=== PATIENT | female | born 1960 | race Caucasian/White ===

== ENCOUNTER 2017-09-13 16:50 | Inpatient (IN) | payer MEDICARE, MEDICAID, SELFPAY ==
[2017-09-13] VITALS (10 sets, daily range): BP systolic 102–122; BP diastolic 51–67; PULSE 81–110; RESP 18–24; TEMP 36.9–37.4; O2SAT 94–99; BMI 36.8; BMI 37.9
--- NOTE | 2017-09-13 18:23 | RAD_ITS ---
STUDY: X-RAY CHEST REASON FOR EXAM: Female, 57 years old. Shortness of breath cough and nausea TECHNIQUE: PA and lateral views of the chest. COMPARISON: Previous study of 06/22/2017 FINDINGS: There is a right middle lobe infiltrate. There is no demonstrated pleural abnormality. Normal size heart. Normal mediastinum and elidia. Normal visualized pulmonary arteries. There are calcified plaques of the aortic arch. Normal visualized thoracic spine. Normal visualized ribs, clavicles, and shoulders. There is no demonstrated abnormality of the visualized soft tissue structures of the upper abdomen. RAD/Chest PA and Lateral IMPRESSION: Right middle lobe infiltrate, representing a new interval finding. Calcified plaques of the aortic arch. Electronically Signed: Miguel Mays MD at 19:57 EST , Service support ,
--- NOTE | 2017-09-13 18:24 | ED.VISSUMM ---
- ER Visit Summary Date of Service: 09/13/17 Chief Complaint: Several day history of cough and mild shortness of breath. Only chest pain is with coughing. Also had nausea vomiting today and greenish productive phlegm. Subjective fever and chills. No abdominal pain. She did get a flu shot this year. No history of DVT or PE. No recent immobilization, calf pain or any hemoptysis. History of Present Illness: States she was feeling ill for several days and saw she was starting to feel better and then again worsened. Physical exam: The patient is a 57 F no acute distress. Vital signs are stable afebrile. Pulse ox 95% on room air no hypoxia. HEENT exam dry mucous membranes otherwise unremarkable. Neck nontender no JVD no lymphadenopathy. Lungs dry cough but no rales, rhonchi or wheezing. Equal symmetrical. Heart regular rhythm no murmur. Abdomen is soft and nontender. Normal bowel sounds without peritoneal signs. No localizing tenderness. She is moving all 4 extremities. Neurovascular intact. Calves are nontender without edema or cords. Neurologically patient is awake and alert without any focal motor deficits. Skin exam is unremarkable. Test Results: Chest x-ray two-view shows a right lower lobe pneumonia. White count elevated 12.6 with a normal H&H. BMP is normal with a anion gap of 9. Emergency Department Course and Treatment: Clinically looks dehydrated and will see the liter of fluid IV. Also IV Zofran for you. Treatment Plan: Repeat exam patient states she does not feel well at all. We get up and walk during she is extremely weak tried to ambulate. But she was able to ambulate. Due to her right lower lobe pneumonia and multiple comorbidities I will speak to the hospitalist about admission. I have already discussed this with the patient and family who preferred admission. Disposition: Admission Impression: Acute right lower lobe community-acquired pneumonia COPD exacerbation History of CAD, [place], COPD This note was generated with Agency Spot[employer] dictation software. It may contain incorrect words, spelling, and punctuation that were not noted in review of the chart prior to signing ED Disposition - Plan for ED Patient: Chief Complaint: Shortness of Breath Referrals: Edvin West MD [Primary Care Provider] -
[2017-09-13 18:54] LABS: Absolute Lymphocyte Count 1.18 X10^3/ul (0.83-4.51); Absolute Neutrophil Count 10.3 X10^3/uL (2.0-7.7); Basophil# 0.02 X10^3/uL; Basophil% 0.2 % (0-1); Eosinophil# 0.09 X10^3/uL; Eosinophils% 0.7 % (0-5); Hematocrit 37.5 % (37-47); Hemoglobin 12.4 g/dl (12.0-15.0); Lymphocyte # 1.18 X10^3/ul (4.0); Lymphocyte % 9.4 % (19-41); Mean Corp Hgb Conc 33.1 g/gl (32-36); Mean Corpuscular Hgb 30.4 pg (27.0-32.0); Mean Corpuscular Volume 91.9 fL (81-99); Mean Platelet Vol. 8.6 fl (6.2-12.0); Monocyte# 0.97 X10^3/uL; Monocyte% 7.7 % (0-10); Neutrophil % 81.9 % (47-70); Platelet Count 210 K/mm3 (150-450); RBC Distribution Width CV 13.7 % (11.6-14.6); Red Blood Count 4.08 M/mm3 (4.2-5.4); White Blood Count 12.6 K/mm3 (4.4-11.0)
[2017-09-13 18:55] LABS: POSITIVE COUNT NO; POSITIVE DIFFERENTIAL NO; POSITIVE MORPHOLOGY NO
[2017-09-13 19:07] LABS: Anion Gap 9 (5-15); BUN 12 mg/dL (7-18); BUN/Creat Ratio 12.9 RATIO (10-20); Calcium,Total 8.8 mg/dL (8.5-10.1); Chloride 104 mmol/L (98-107); Creatinine, Serum 0.93 mg/dL (0.55-1.02); EST Glomerular Filtration Rate 66 mL/min (>60); Est Glom Filt Rate - Afr Amer 80 mL/min (>60); Estimated Creatinine Clearance 60.06 ml/min; Glucose 117 mg/dL (70-110); Potassium 3.7 mmol/L (3.5-5.1); Sodium Level 138 mmol/L (136-145)
[2017-09-13] MEDS: Ondansetron 4 MG/2 ML Vial IV (19:17)
[2017-09-13] MEDS: 0.9% Normal Saline 1,000 ML 1000 ML IV (19:17)
--- NOTE | 2017-09-13 20:30 | PCM.HP.STD ---
Problem List (1) Chills with fever Status: Acute (2) Productive cough Status: Acute History of Present Illness Date of Admission: 09/13/17 Chief Complaint: productive cough, chill, fever The patient is a 57 year old F was seen in the emergency room at [facility] with a chief complaint of cough productive of green sputum, fever, and chills ?2 days. Patient also complained of some shortness of breath today. Patient denied any hemoptysis. Patient stated that she felt she was running a temperature at home but did not take her temperature. Patient also complained of generalized fatigue and weakness. Patient was afebrile, pulse ox on room air was 98%. Workup in the emergency room included labs which showed an elevated white blood cell count 12.6, chemistry profile was unremarkable, chest x-ray showed a right middle lobe infiltrate indicating probable community-acquired pneumonia. Emergency room physician was considering discharge to home on oral antibiotics but upon ambulation in the emergency room, patient became weak and did not feel that she could go home. Patient's medical history includes chronic obstructive pulmonary disease and atherosclerotic heart disease. At the time of this dictation, patient's lactic acid was pending, patient received IV Levaquin in the emergency room. Patient will be admitted to [facility] for right middle lobe community-acquired pneumonia. Past Medical History Past Medical History (Chronic Problems): Chronic Problems Diabetes mellitus (Chronic) Coronary artery disease (Chronic) Hyperlipidemia (Chronic) Anxiety disorder (Chronic) Depression (Chronic) Asthma/COPD (Chronic) Allergies No Known Allergies Allergy (Verified 09/13/17 16:56) Home Medications: Ambulatory Orders Medication Instructions Recorded ALPRAZolam [Xanax] 1 mg PO QHS 06/22/17 Albuterol Aerosols [Ventolin 2.5 mg INHALATION Q4H PRN PRN 06/22/17 Aerosols] Albuterol IH (ProAir) [Proair Hfa 1 puff INHALATION Q4H PRN PRN 06/22/17 (SP)Vent Pts] Amitriptyline HCl [Elavil] 25 mg PO QHS 06/22/17 Bupropion HCl [Wellbutrin Xl] 300 mg PO DAILY 06/22/17 Clopidogrel Bisulfate [Plavix] 75 mg PO DAILY 06/22/17 Docusate Sodium [Colace] 100 mg PO DAILY PRN PRN 06/22/17 Duloxetine Hcl [Cymbalta] 30 mg PO TID 06/22/17 Fluticasone 0.05% [Flonase Nasal 2 spray NASAL DAILY 06/22/17 Ducor] Gabapentin [Neurontin] 300 mg PO BIDCM 06/22/17 Montelukast Sodium [Singulair] 10 mg PO QHS 06/22/17 Mupirocin [Bactroban] 1 applic TOPICAL TID 06/22/17 Nitroglycerin 1 tab PO Q5M 06/22/17 Nystatin Powder [Mycostatin Powder] 1 applic TOPICAL BID 06/22/17 Omeprazole [Prilosec] 20 mg PO DAILY 06/22/17 Ondansetron [Zofran Odt] 4 mg PO PRN PRN 06/22/17 Chlorhexidine Gluconate [Peridex] 15 ml MM BID 09/13/17 Melatonin 10 mg PO QHS 09/13/17 Montelukast [Singulair] 10 mg PO DAILY 09/13/17 Surgical History: dilatation and curettage, - - Coronary artery stents, gastric bypass Psychiatric History: Anxiety, Depression 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 Denies: Anorexia, Night Sweats Eyes: Denies: Blurred vision, Cataracts, Conjunctivae Inflammation, Double vision, Drainage HEENT: Denies: Difficulty Swallowing, Dysphasia, Ear Pain, Eye Pain, Head Aches, Hearing Changes, Nasal bleeding, Nasal Congestion, Post Nasal Drip Cardiovascular: Denies: Chest Pain, Claudication, Chest Pressure, Chest Tightness, Edema, Orthopnea, Palpitations, Paroxysmal Noc. Dyspnea, Syncope Respiratory: Reports: Cough, Shortness of Breath, Shortness of breath upon exertion, Sputum production. Denies: Hemoptysis, Pleuritic Pain, Shortness of breath at rest, Wheezing Gastrointestinal: Denies: Abdominal Pain, Constipation, Diarrhea, Dyspepsia, Hematemesis, Hematochezia, Nausea, Melena Genitourinary: Denies: Dysuria, Frequency, Hematuria, Incontinence, Nocturia, Retention Gynecological: Denies: Breast symptoms Musculoskeletal: Denies: Arm Pain, Back Pain, Foot Pain, Hand Pain, Joint stiffness, Joint swelling, Joint Tenderness, Leg Pain Skin: Denies: Dryness, Jaundice, Pruritis, Rash Neurological: Denies: Balance problems, Blurred vision, Double vision, Change in Speech, Difficulty swallowing, Focal weakness, Headaches, Incoordination Psychiatric: Reports: Depression. Denies: Anxiety, Homicidal Ideations, Suicidal Ideations Endocrine: Denies: Change in Body Habitus, Heat/ Cold Intolerance, Polyuria, Hx of Irradiation Hematologic/ Lymphatic: Denies: Adenopathy, Anemia, Easy Bruising, Petechiae, Purpura, Hx of blood clot VTE Information - Inpt Only VTE Present on Admission: No VTE Mechan Device Prophylaxis: None VTE Pharm Prophylaxis ordered?: Yes Patient Problems: Active and Suspected Problems Chills with fever (Acute) Productive cough (Acute) - Physical Exam General: Alert, Oriented x3, Cooperative, No apparent distress, Well developed, Well nourished HEENT: Atraumatic, PERRLA, EOMI, Normocephalic Oral: Moist Mucosa Neck: Supple, No JVD, Negative Carotid Bruits, No Nuchal Rigidity, Trachea Midline, Thyroid Normal Size and Texture Lungs: No rhonchi, No wheeze, Diminished, Rales - Fine inspiratory rales are noted over the patient's right posterior midlung field Cardiovascular: Regular rate, Regular Rhythm, Normal S1, Normal S2, No murmurs, No Ectopic Activity, PMI Normal, No rub noted, No Gallop Abdomen: Bowel Sounds Present, Soft, Non Tender, Non-Distended, No hernias noted Extremities: No clubbing, No cyanosis, No edema, Capillary Refill Less than 3 Seconds Skin: No rashes, No breakdown Musculoskeletal: No Tenderness to Palpation of Joints or Extremities, No Muscle Wasting Neurological: Cranial nerves II-XII grossly intact, Neuro grossly intact, Muscle tone normal, Sensory exam intact to light touch and pain, Coordination normal, Gait narrow based and stable Psych/Mental Status: Normal Affect, Appropriate, Alert and oriented to time, place, person, mood and affect Vital Signs Temp Pulse Resp BP Pulse Ox 99.3 F H 99 24 H 102/67 98 09/13/17 16:53 01/03/18 20:06 09/13/17 20:06 09/13/17 20:06 09/13/17 20:06 Oxygen Delivery Method Nasal Cannula Weight: 100.244 kg Body Mass Index (BMI) 36.8 Laboratory Tests Past 24 Hrs 09/13/17 09/13/17 18:35 18:35 WBC 12.6 H RBC 4.08 L Hgb 12.4 Hct 37.5 MCV 91.9 MCH 30.4 MCHC 33.1 RDW 13.7 RDW Differential 45.0 H Plt Count 210 MPV 8.6 Immature Gran % (Auto) 0.100 Neut % (Auto) 81.9 H Lymph % (Auto) 9.4 L [place] % (Auto) 7.7 Eos % (Auto) 0.7 Baso % (Auto) 0.2 Absolute Neuts (auto) 10.3 H Absolute Lymphs (auto) 1.18 Total Counted Not Reportable Sodium 138 Potassium 3.7 Chloride 104 Carbon Dioxide 25.0 Anion Gap 9 BUN 12 Creatinine 0.93 Estim Creat Clear Calc 60.06 Est GFR (MDRD) Af Amer 80 Est GFR (MDRD) Non-Af 66 BUN/Creatinine Ratio 12.9 Glucose 117 H Calcium 8.8 Assessment/Plan Active and Suspected Problems Chills with fever (Acute) Productive cough (Acute) #1 right middle lobe community-acquired pneumonia-patient will be admitted to [facility], she will be maintained on IV Levaquin, sputum culture will be obtained, patient will be given DuoNeb aerosol treatments, labs will be repeated, patient will have a follow-up chest x-ray tomorrow. Lactic acid will be obtained tonight, urine will be obtained for Legionella and strep pneumo antigen. #2 chronic obstructive pulmonary disease #3 atherosclerotic heart disease #4 depression Code Visit Inpatient E&M: 70770 Init Hosp L3
--- NOTE | 2017-09-13 20:32 | ED.RN ---
MED SURG RIGHT LOWER LOBE COMMUNITY AQUIRED PNEUMONIA GUILLAUME
[2017-09-13 22:20] LABS: Lactic Acid 1.2 mmol/L (0.4-2.0)
[2017-09-13] MEDS: Amitriptyline 25 MG Tablet PO (22:26)
[2017-09-13] MEDS: Montelukast 10 MG Tablet PO (22:26)
[2017-09-13] MEDS: MELATONIN 10 MG TABLET PO (22:26)
[2017-09-13] MEDS: DULoxetine Hcl 30 MG Capsule PO (22:26)
[2017-09-13] MEDS: Heparin Injection 5,000 UNITS/ML Syringe 5000 UNITS SC (22:26)
[2017-09-13] MEDS: Acetaminophen 325 MG Tablet 650 MG PO (22:40)
[2017-09-13] MEDS: Ipratropium/Albuterol Sulfate 3 ML AMPUL.NEB INHALATION (23:07)
[2017-09-14] VITALS (8 sets, daily range): BP systolic 94–116; BP diastolic 53–67; PULSE 72–91; RESP 16–20; TEMP 36.5–36.9; O2SAT 94–98
[2017-09-14] MEDS: ALPRAZolam 0.5 MG Tablet 1 MG PO ×2 (00:08→21:51)
[2017-09-14] MEDS: DULoxetine Hcl 30 MG Capsule PO ×3 (05:21→21:51)
--- NOTE | 2017-09-14 05:55 | RAD_ITS ---
STUDY: X-RAY CHEST REASON FOR EXAM: Female, 57 years old. Shortness of breath. Cough and pneumonia. TECHNIQUE: PA and lateral views of the chest. COMPARISON: Comparison is made with prior examination dated 2017. FINDINGS: Minimal elevation of the right hemidiaphragm. Stable infiltrate in the right lower lobe with blunting of the right costophrenic angle. Increased markings are also seen in the right middle lobe. Increasing markings at the left lung base suggestive of left basilar atelectasis. Normal size heart. Normal mediastinum and elidia. Normal visualized pulmonary arteries. Normal visualized aortic arch and descending thoracic aorta. Normal visualized thoracic spine. Normal visualized ribs, clavicles, and shoulders. There is no demonstrated abnormality of the visualized soft tissue structures of the upper abdomen. RAD/Chest PA and Lateral IMPRESSION: Stable right lower lobe and right middle lobe infiltrates. Blunting of the right costophrenic angle. Findings suggestive of atelectasis at the left lung base. Electronically Signed: Marcial Arceo MD at 10:58 EST Tel [phone], Service support ,
[2017-09-14 07:04] LABS: Absolute Lymphocyte Count 2.01 X10^3/ul (0.83-4.51); Absolute Neutrophil Count 6.4 X10^3/uL (2.0-7.7); Basophil# 0.02 X10^3/uL; Basophil% 0.2 % (0-1); Eosinophils% 4.2 % (0-5); Hematocrit 34.5 % (37-47); Hemoglobin 11.1 g/dl (12.0-15.0); Lymphocyte # 2.01 X10^3/ul (4.0); Mean Corp Hgb Conc 32.2 g/gl (32-36); Mean Corpuscular Hgb 30.3 pg (27.0-32.0); Mean Corpuscular Volume 94.3 fL (81-99); Mean Platelet Vol. 8.7 fl (6.2-12.0); Monocyte# 0.75 X10^3/uL; Monocyte% 7.8 % (0-10); Neutrophil # 6.39 X10^3/uL (2.7-7.7); Neutrophil % 66.7 % (47-70); Platelet Count 189 K/mm3 (150-450); RBC Distribution Width CV 14.1 % (11.6-14.6); Red Blood Count 3.66 M/mm3 (4.2-5.4); White Blood Count 9.6 K/mm3 (4.4-11.0)
[2017-09-14 07:07] LABS: POSITIVE COUNT NO; POSITIVE DIFFERENTIAL NO; POSITIVE MORPHOLOGY NO
[2017-09-14] MEDS: Ipratropium/Albuterol Sulfate 3 ML AMPUL.NEB INHALATION ×3 (07:49→22:57)
[2017-09-14] MEDS: Gabapentin 300 MG Capsule PO ×2 (09:12→17:10)
[2017-09-14] MEDS: Clopidogrel Bisulfate 75 MG Tablet PO (09:12)
[2017-09-14] MEDS: Pantoprazole Sodium 20 MG Tablet PO (09:13)
[2017-09-14] MEDS: Heparin Injection 5,000 UNITS/ML Syringe 5000 UNITS SC ×2 (09:13→21:50)
--- NOTE | 2017-09-14 10:19 | PCM.PN.HOSP ---
Patient Problems: Active and Suspected Problems Chills with fever (Acute) Productive cough (Acute) Subjective: Patient is a 57-year-old lady who presented with progressive shortness of breath associated with fever chills as well as productive cough and assessment of pneumonia made admitted to regular nursing floor for further management Objective: GENERAL: Appears ill looking HEENT: Clear conjunctiva, NECK; supple, normal thyroid, CHEST: Diminished to auscultation bilaterally, HEART: Regular S1 S2, no audible murmurs ABDOMEN: soft, non-tender, normoactive bowel sounds, RECTAL: deferred EXTREMITIES: No edema, no clubbing, no cyanosis. CONTACT CENTER REPRESENTATIVE: Awake, no lateralizing signs. SKIN: No lesions no erythema, Vitals/I&O's: Vital Signs Temp Pulse Resp BP Pulse Ox 97.7 F L 91 18 116/57 L 96 09/14/17 09:10 09/14/17 09:10 09/14/17 09:10 09/14/17 09:10 09/14/17 09:10 Oxygen Delivery Method Room Air Weight: 103.3 kg Body Mass Index (BMI) 37.9 Intake and Output for Last 24 Hours 09/12/17 09/13/17 09/14/17 23:59 23:59 23:59 Intake Total 710 / 710 Output Total 300 / 300 950 / 950 Balance -300 / -300 -240 / -240 Microbiology Past 72 Hours 09/13/17 23:20 Sputum, Expectorated/Coughed Gram Stain - Preliminary 09/13/17 22:30 Urine, Clean Catch Streptococcus pneumoniae Antigen (M - Final 09/13/17 22:30 Urine, Clean Catch Legionella Antigen - Final Laboratory Results 09/13/17 21:31: Lactic Acid 1.2 09/14/17 06:14: WBC 9.6, RBC 3.66 L, Hgb 11.1 L, Hct 34.5 L, MCV 94.3, MCH 30.3, MCHC 32.2, RDW 14.1, RDW Differential 48.0 H, Plt Count 189, MPV 8.7, Immature Gran % (Auto) 0.100, Neut % (Auto) 66.7, Lymph % (Auto) 21.0, [place] % (Auto) 7.8, Eos % (Auto) 4.2, Baso % (Auto) 0.2, Absolute Neuts (auto) 6.4, Absolute Lymphs (auto) 2.01, Total Counted Not Reportable Current Medications Acetaminophen (Tylenol) 650 mg PO Q6H PRN PRN PRN Reason: Mild Pain (1-3)/Temp > 100.7 F Last Admin: 09/13/17 22:40 Dose: 650 mg Albuterol/Ipratropium (Duoneb) 3 ml INHALATION Q6H.RT [facility] Last Admin: 09/14/17 07:49 Dose: 3 ml Alprazolam (Xanax) 1 mg PO QHS PRN Last Admin: 09/14/17 00:08 Dose: 1 mg Amitriptyline HCl (Elavil) 25 mg PO QHS [facility] Last Admin: 09/13/17 22:26 Dose: 25 mg Bupropion HCl (Wellbutrin Xl) 300 mg PO DAILY [facility] Last Admin: 09/14/17 09:13 Dose: 300 mg Clopidogrel Bisulfate (Plavix) 75 mg PO DAILY [facility] Last Admin: 09/14/17 09:12 Dose: 75 mg Duloxetine HCl (Cymbalta) 30 mg PO TID [facility] Last Admin: 09/14/17 05:21 Dose: 30 mg Gabapentin (Neurontin) 300 mg PO BIDCM [facility] Last Admin: 09/14/17 09:12 Dose: 300 mg Heparin Sodium (Porcine) () 5,000 units SC BID [facility] Last Admin: 09/14/17 09:13 Dose: 5,000 units Levofloxacin (Levaquin) 750 mg in 150 mls @ 100 mls/hr IV Q24 [facility] Last Admin: 09/14/17 09:13 Dose: 100 mls/hr Sodium Chloride () 1,000 mls @ 15 mls/hr IV .Q48H PRN PRN Reason: SALINE FLUSH Melatonin (Melatonin) 10 mg PO QHS [facility] Last Admin: 09/13/17 22:26 Dose: 10 mg Montelukast Sodium (Singulair) 10 mg PO QHS [facility] Last Admin: 09/13/17 22:26 Dose: 10 mg Ondansetron HCl (Zofran) 4 mg IV Q8H PRN PRN PRN Reason: NAUSEA Pantoprazole Sodium (Protonix) 20 mg PO DAILY [facility] Last Admin: 09/14/17 09:13 Dose: 20 mg Sodium Chloride () 5 - 30 ml IV UD PRN PRN Reason: SALINE FLUSH Assessment/Plan Active and Suspected Problems Chills with fever (Acute) Productive cough (Acute) Patient is a 57-year-old lady who presented with progressive shortness of breath associated with fever chills as well as productive cough and assessment of pneumonia made admitted to regular nursing floor for further management 1. Community-acquired pneumonia. Imaging studies obtained on admission demonstrated a right middle lobe infiltrate. Patient admitted to regular nursing floor managed with Levaquin after cultures have been obtained. Patient was also placed on as needed aerosol treatment as well as supplemental oxygen. Also requested for rapid respiratory screen to rule out influenza 2. COPD stable 3. Atherosclerotic heart disease and is on both Plavix as well as atorvastatin 4. Dyslipidemia-patient is on statin therapy, continued at home dose 5. Depression: Patient is on Wellbutrin 6. GERD on PPI 7. DVT prophylaxis SC heparin Clinical Impression(s) from Imaging Studies Chest X-Ray 09/13/17 18:23 IMPRESSION: Right middle lobe infiltrate, representing a new interval finding. Calcified plaques of the aortic arch. Electronically Signed: Miguel Mays MD at 19:57 EST , Service support , Code Visit Inpatient E&M: [id number] [facility] Hosp L3
--- NOTE | 2017-09-14 10:28 | PN_ITS ---
Patient Problems: Active and Suspected Problems Chills with fever (Acute) Productive cough (Acute) Subjective: Patient is a 57-year-old lady who presented with progressive shortness of breath associated with fever chills as well as productive cough and assessment of pneumonia made admitted to regular nursing floor for further management Objective: GENERAL: Appears ill looking HEENT: Clear conjunctiva, NECK; supple, normal thyroid, CHEST: Diminished to auscultation bilaterally, HEART: Regular S1 S2, no audible murmurs ABDOMEN: soft, non-tender, normoactive bowel sounds, RECTAL: deferred EXTREMITIES: No edema, no clubbing, no cyanosis. 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 SKIN: No lesions no erythema, Vitals/I&O's: Vital Signs Temp Pulse Resp BP Pulse Ox 97.7 F L 91 18 116/57 L 96 09/14/17 09:10 09/14/17 09:10 09/14/17 09:10 09/14/17 09:10 09/14/17 09:10 Oxygen Delivery Method Room Air Weight: 103.3 kg Body Mass Index (BMI) 37.9 Intake and Output for Last 24 Hours 09/12/17 09/13/17 09/14/17 23:59 23:59 23:59 Intake Total 710 / 710 Output Total 300 / 300 950 / 950 Balance -300 / -300 -240 / -240 Microbiology Past 72 Hours 09/13/17 23:20 Sputum, Expectorated/Coughed Gram Stain - Preliminary 09/13/17 22:30 Urine, Clean Catch Streptococcus pneumoniae Antigen (M - Final 09/13/17 22:30 Urine, Clean Catch Legionella Antigen - Final Laboratory Results 09/13/17 21:31: Lactic Acid 1.2 09/14/17 06:14: WBC 9.6, RBC 3.66 L, Hgb 11.1 L, Hct 34.5 L, MCV 94.3, MCH 30.3 , MCHC 32.2, RDW 14.1, RDW Differential 48.0 H, Plt Count 189, MPV 8.7, Immature Gran % (Auto) 0.100, Neut % (Auto) 66.7, Lymph % (Auto) 21.0, [place] % ( Auto) 7.8, Eos % (Auto) 4.2, Baso % (Auto) 0.2, Absolute Neuts (auto) 6.4, Absolute Lymphs (auto) 2.01, Total Counted Not Reportable Current Medications Acetaminophen (Tylenol) 650 mg PO Q6H PRN PRN PRN Reason: Mild Pain (1-3)/Temp > 100.7 F Last Admin: 09/13/17 22:40 Dose: 650 mg Albuterol/Ipratropium (Duoneb) 3 ml INHALATION Q6H.RT [facility] Last Admin: 09/14/17 07:49 Dose: 3 ml Alprazolam (Xanax) 1 mg PO QHS PRN Last Admin: 09/14/17 00:08 Dose: 1 mg Amitriptyline HCl (Elavil) 25 mg PO QHS [facility] Last Admin: 09/13/17 22:26 Dose: 25 mg Bupropion HCl (Wellbutrin Xl) 300 mg PO DAILY [facility] Last Admin: 09/14/17 09:13 Dose: 300 mg Clopidogrel Bisulfate (Plavix) 75 mg PO DAILY [facility] Last Admin: 09/14/17 09:12 Dose: 75 mg Duloxetine HCl (Cymbalta) 30 mg PO TID [facility] Last Admin: 09/14/17 05:21 Dose: 30 mg Gabapentin (Neurontin) 300 mg PO BIDCM [facility] Last Admin: 09/14/17 09:12 Dose: 300 mg Heparin Sodium (Porcine) () 5,000 units SC BID [facility] Last Admin: 09/14/17 09:13 Dose: 5,000 units Levofloxacin (Levaquin) 750 mg in 150 mls @ 100 mls/hr IV Q24 [facility] Last Admin: 09/14/17 09:13 Dose: 100 mls/hr Sodium Chloride () 1,000 mls @ 15 mls/hr IV .Q48H PRN PRN Reason: SALINE FLUSH Melatonin (Melatonin) 10 mg PO QHS [facility] Last Admin: 09/13/17 22:26 Dose: 10 mg Montelukast Sodium (Singulair) 10 mg PO QHS [facility] Last Admin: 09/13/17 22:26 Dose: 10 mg Ondansetron HCl (Zofran) 4 mg IV Q8H PRN PRN PRN Reason: NAUSEA Pantoprazole Sodium (Protonix) 20 mg PO DAILY [facility] Last Admin: 09/14/17 09:13 Dose: 20 mg Sodium Chloride () 5 - 30 ml IV UD PRN PRN Reason: SALINE FLUSH Assessment/Plan Active and Suspected Problems Chills with fever (Acute) Productive cough (Acute) Patient is a 57-year-old lady who presented with progressive shortness of breath associated with fever chills as well as productive cough and assessment of pneumonia made admitted to regular nursing floor for further management 1. Community-acquired pneumonia. Imaging studies obtained on admission demonstrated a right middle lobe infiltrate. Patient admitted to regular nursing floor managed with Levaquin after cultures have been obtained. Patient was also placed on as needed aerosol treatment as well as supplemental oxygen. Also requested for rapid respiratory screen to rule out influenza 2. COPD stable 3. Atherosclerotic heart disease and is on both Plavix as well as atorvastatin 4. Dyslipidemia-patient is on statin therapy, continued at home dose 5. Depression: Patient is on Wellbutrin 6. GERD on PPI 7. DVT prophylaxis SC heparin Clinical Impression(s) from Imaging Studies Chest X-Ray 09/13/17 18:23 IMPRESSION: Right middle lobe infiltrate, representing a new interval finding. Calcified plaques of the aortic arch. Electronically Signed: Miguel Mays MD at 19:57 EST , Service support , Code Visit Inpatient E&M: [id number] [facility] Hosp L3
--- NOTE | 2017-09-14 11:15 | CASEMGMT ---
DC Plan: home on dc. See RN CM Assessment link for details. Jose GUZMANN RN ACM
--- NOTE | 2017-09-14 16:40 | SUR.HOLD ---
Type of Pastoral Visit _x__ Initial Visit ___ Follow-up Visit ___ On-call Visit ___ General Patient Visit ___ Spiritual Assessment ___ Family Conference ___ Bereavement ___ Rapid Response ___ Code Blue ___ Other (describe below) Pastoral Care Referral From _x__ Patient ___ Family ___ Nurse ___ Physician ___ Senior Manager Creative Services ___ Crystal Grower ___ Other (describe below) Sacrament/Intervention _x__ Active listening ___ Anointing ___ Protestant ___ Bereavement ___ Communion _x__ Sara exploration ___ _x__ Life review _x__ Prayer ___ Reconciliation ___ Sacrament of Sick _x__ Supportive presence ___ Wedding ___ Other (describe below) Pastoral Comments patient spoke with finish mixer about health history, development of personal sara in God, and family issues with her children
[2017-09-14] MEDS: Montelukast 10 MG Tablet PO (21:51)
[2017-09-14] MEDS: MELATONIN 10 MG TABLET PO (21:51)
[2017-09-14] MEDS: Amitriptyline 25 MG Tablet PO (21:51)
[2017-09-15 02:30] VITALS: BP 133/72; PULSE 86; RESP 16; TEMP 36.9; O2SAT 94
[2017-09-15] MEDS: DULoxetine Hcl 30 MG Capsule PO (06:13)
[2017-09-15 07:00] VITALS: PULSE 88; RESP 20
[2017-09-15] MEDS: Ipratropium/Albuterol Sulfate 3 ML AMPUL.NEB INHALATION (07:00)
--- NOTE | 2017-09-15 08:33 | PCM.DC ---
- Discharge Diagnoses Current Active Problems: Current Active and Chronic Problems Chills with fever (Acute) Productive cough (Acute) You will use the following diet at home:: No restrictions Discharge Activity: Return to Normal Activity Allergies/Adverse Reactions: Allergies No Known Allergies Allergy (Verified 09/13/17 16:56) Medications to take at Discharge ALPRAZolam [Xanax] 1 mg PO QHS PRN 06/22/17 Albuterol Aerosols [Ventolin Aerosols] 2.5 mg INHALATION Q4H PRN PRN 06/22/17 Albuterol IH (ProAir) [Proair Hfa] 1 puff INHALATION Q4H PRN PRN 06/22/17 Amitriptyline HCl [Elavil] 25 mg PO QHS 06/22/17 Bupropion HCl [Wellbutrin Xl] 300 mg PO DAILY 06/22/17 Clopidogrel Bisulfate [Plavix] 75 mg PO DAILY 06/22/17 Docusate Sodium [Colace] 100 mg PO DAILY PRN PRN 06/22/17 Duloxetine Hcl [Cymbalta] 30 mg PO BID 06/22/17 Fluticasone 0.05% [Flonase Nasal [place]] 2 spray NASAL DAILY 06/22/17 Gabapentin [Neurontin] 300 mg PO BIDCM 06/22/17 Nitroglycerin 1 tab PO Q5M 06/22/17 Nystatin Powder [Mycostatin Powder] 1 applic TOPICAL BID 06/22/17 Omeprazole [Prilosec] 20 mg PO DAILY 06/22/17 Ondansetron [Zofran Odt] 4 mg PO DAILY 06/22/17 Atorvastatin Calcium [Lipitor] 40 mg PO QHS 09/13/17 Melatonin 10 mg PO QHS 09/13/17 Montelukast [Singulair] 10 mg PO QHS 09/13/17 Zolpidem Tartrate [Ambien] 10 mg PO QHS PRN PRN 09/13/17 Levofloxacin [Levaquin] 750 mg PO DAILY #5 tab 09/15/17 The following prescriptions were given: Levofloxacin [Levaquin] 750 mg PO DAILY #5 tab Primary Care Physician: Edvin West MD [Primary Care Provider] - Please follow up with your Primary Care Physician in: in 1 week Proposed Discharge Date: 09/15/17
--- NOTE | 2017-09-15 08:34 | PCM.DC.SUM ---
Discharge Date and Diagnosis - Problem List Patient Problems: Active and Suspected Problems Pneumonia (Acute) Chills with fever (Acute) Productive cough (Acute) Date of Admission: 09/13/17 Date of Discharge: 09/15/17 - Primary Discharge Diagnosis Active and Suspected Problems Pneumonia (Acute) Chills with fever (Acute) Productive cough (Acute) - Secondary Discharge Diagnosis Chronic Problems Diabetes mellitus (Chronic) Coronary artery disease (Chronic) Hyperlipidemia (Chronic) Anxiety disorder (Chronic) Depression (Chronic) Asthma/COPD (Chronic) Hospital Course and Treatment Imaging Results: Clinical Impression(s) from Imaging Studies Chest X-Ray 09/13/17 18:23 IMPRESSION: Right middle lobe infiltrate, representing a new interval finding. Calcified plaques of the aortic arch. Electronically Signed: Miguel Mays MD at 19:57 EST , Service support , Chest X-Ray 09/14/17 05:55 IMPRESSION: Stable right lower lobe and right middle lobe infiltrates. Blunting of the right costophrenic angle. Findings suggestive of atelectasis at the left lung base. Electronically Signed: Marcial Arceo MD at 10:58 EST Tel [phone], Service support , Operations: None Summary of Care Provided: Patient is a 57-year-old lady who presented with progressive shortness of breath associated with fever chills as well as productive cough and assessment of pneumonia made admitted to regular nursing floor for further management 1. Community-acquired pneumonia. Imaging studies obtained on admission demonstrated a right middle lobe infiltrate. Patient admitted to regular nursing floor managed with Levaquin after cultures have been obtained. Patient was also placed on as needed aerosol treatment as well as supplemental oxygen. Also requested for rapid respiratory screen to rule out influenza 2. COPD stable 3. Atherosclerotic heart disease and is on both Plavix as well as atorvastatin 4. Dyslipidemia-patient is on statin therapy, continued at home dose 5. Depression: Patient is on Wellbutrin 6. GERD on PPI 7. DVT prophylaxis SC heparin Discharge Activity: Return to Normal Activity Home Medications: Medications to take at Discharge ALPRAZolam [Xanax] 1 mg PO QHS PRN 06/22/17 Albuterol Aerosols [Ventolin Aerosols] 2.5 mg INHALATION Q4H PRN PRN 06/22/17 Albuterol IH (ProAir) [Proair Hfa] 1 puff INHALATION Q4H PRN PRN 06/22/17 Amitriptyline HCl [Elavil] 25 mg PO QHS 06/22/17 Bupropion HCl [Wellbutrin Xl] 300 mg PO DAILY 06/22/17 Clopidogrel Bisulfate [Plavix] 75 mg PO DAILY 06/22/17 Docusate Sodium [Colace] 100 mg PO DAILY PRN PRN 06/22/17 Duloxetine Hcl [Cymbalta] 30 mg PO BID 06/22/17 Fluticasone 0.05% [Flonase Nasal [place]] 2 spray NASAL DAILY 06/22/17 Gabapentin [Neurontin] 300 mg PO BIDCM 06/22/17 Nitroglycerin 1 tab PO Q5M 06/22/17 Nystatin Powder [Mycostatin Powder] 1 applic TOPICAL BID 06/22/17 Omeprazole [Prilosec] 20 mg PO DAILY 06/22/17 Ondansetron [Zofran Odt] 4 mg PO DAILY 06/22/17 Atorvastatin Calcium [Lipitor] 40 mg PO QHS 09/13/17 Melatonin 10 mg PO QHS 09/13/17 Montelukast [Singulair] 10 mg PO QHS 09/13/17 Zolpidem Tartrate [Ambien] 10 mg PO QHS PRN PRN 09/13/17 Levofloxacin [Levaquin] 750 mg PO DAILY #5 tab 09/15/17 Following Prescrptions Were Given to Patient: Levofloxacin [Levaquin] 750 mg PO DAILY #5 tab Primary Care Physician: Edvin West MD [Primary Care Provider] - Please follow up with your Primary Care Physician in: in 1 week Disposition: Home Minutes spent on discharge:: 35 Patient Condition:: Stable Meaningful Use Info Meaningful Use Diagnoses (Choose all that apply): None applicable Code Visit Inpatient E&M: 40021 Disch Hosp
[2017-09-15 08:41] VITALS: BP 114/67; PULSE 90; RESP 18; TEMP 36.7; O2SAT 98
[2017-09-15] MEDS: Gabapentin 300 MG Capsule PO (08:46)
[2017-09-15] MEDS: Clopidogrel Bisulfate 75 MG Tablet PO (08:47)
[2017-09-15] MEDS: Pantoprazole Sodium 20 MG Tablet PO (08:47)
== END 2017-09-15 08:58 | disposition home or self-care (01) | DRG 194 ==
LOC: ED 20:37 → MS2 20:39
PROVIDERS: Admitting Provider Internal Medicine; Emergency Provider Emergency Medicine; Family Provider Family Medicine; PCP Family Medicine; Visit Provider Internal Medicine
DX: J18.9 Pneumonia, unspecified organism (principal); J44.0 Chronic obstructive pulmonary disease with (acute) lower respiratory infection; E78.5 Hyperlipidemia, unspecified; F32.9 Major depressive disorder, single episode, unspecified; I25.10 Atherosclerotic heart disease of native coronary artery without angina pectoris; F41.9 Anxiety disorder, unspecified; K21.9 Gastro-esophageal reflux disease without esophagitis; Z87.891 Personal history of nicotine dependence
CPT/HCPCS: 36415; 71046; 80048; 83605; 85025; 87040; 87070; 87205; 87449; 87633; 94640; 94762; 99281; J7030; J7050; A4216; J2405

== ENCOUNTER 2018-05-05 17:28 | Emergency (ER) | payer MEDICARE, MEDICAID, SELFPAY ==
[2018-05-05 17:28] VITALS: BP 139/84; PULSE 91; RESP 18; TEMP 37.1; O2SAT 98; BMI 42.8
[2018-05-05] MEDS: Morphine 4 MG/ML Syringe IV ×2 (17:45→19:11)
[2018-05-05] MEDS: Ondansetron 4 MG/2 ML Vial IV (17:45)
[2018-05-05 17:57] LABS: Absolute Lymphocyte Count 2.81 X10^3/ul (0.83-4.51); Absolute Neutrophil Count 5.1 X10^3/uL (2.0-7.7); Basophil# 0.05 X10^3/uL; Basophil% 0.6 % (0-1); Eosinophil# 0.29 X10^3/uL; Eosinophils% 3.3 % (0-5); Hematocrit 39.5 % (37-47); Hemoglobin 12.8 g/dl (12.0-15.0); Lymphocyte # 2.81 X10^3/ul (4.0); Lymphocyte % 31.9 % (19-41); Mean Corp Hgb Conc 32.4 g/gl (32-36); Mean Corpuscular Hgb 29.8 pg (27.0-32.0); Mean Corpuscular Volume 92.1 fL (81-99); Mean Platelet Vol. 8.7 fl (6.2-12.0); Monocyte# 0.55 X10^3/uL; Monocyte% 6.2 % (0-10); Neutrophil # 5.11 X10^3/uL (2.7-7.7); Neutrophil % 57.9 % (47-70); Platelet Count 270 K/mm3 (150-450); RBC Distribution Width CV 13.4 % (11.6-14.6); RBC Distribution Width SD 44.6 fl (35.1-43.9); Red Blood Count 4.29 M/mm3 (4.2-5.4); White Blood Count 8.8 K/mm3 (4.4-11.0)
[2018-05-05 17:58] LABS: POSITIVE COUNT NO; POSITIVE DIFFERENTIAL NO; POSITIVE MORPHOLOGY NO
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
[2018-05-05 18:03] LABS: Anion Gap 9 (5-15); BUN 12 mg/dL (7-18); BUN/Creat Ratio 11.5 RATIO (10-20); Calcium,Total 9.1 mg/dL (8.5-10.1); Chloride 106 mmol/L (98-107); Creatinine, Serum 1.04 mg/dL (0.55-1.02); EST Glomerular Filtration Rate 58 mL/min (>60); Est Glom Filt Rate - Afr Amer 70 mL/min (>60); Glucose 87 mg/dL (74-106); Potassium 3.8 mmol/L (3.5-5.1); Sodium Level 140 mmol/L (136-145)
[2018-05-05 19:13] VITALS: BP 128/70; PULSE 82; RESP 15; O2SAT 96
== END 2018-05-05 19:44 | disposition home or self-care (01) ==
PROVIDERS: Emergency Provider Emergency Medicine; Family Provider Family Medicine; PCP Family Medicine
DX: S00.03XA Contusion of scalp, initial encounter (principal); S16.1XXA Strain of muscle, fascia and tendon at neck level, initial encounter; S13.4XXA Sprain of ligaments of cervical spine, initial encounter; S80.02XA Contusion of left knee, initial encounter; V89.2XXA Person injured in unspecified motor-vehicle accident, traffic, initial encounter; Y93.9 Activity, unspecified; Y92.9 Unspecified place or not applicable; J44.9 Chronic obstructive pulmonary disease, unspecified; Z72.0 Tobacco use
CPT/HCPCS: 70450; 72125; 73560; 80048; 85025; 96374; 96375; 96376; 99285; A4216; J2405

== ENCOUNTER 2018-05-07 11:19 | Emergency (ER) | payer MEDICARE, MEDICAID, SELFPAY ==
[2018-05-07 11:21] VITALS: BP 120/84; PULSE 72; RESP 16; TEMP 36.6; O2SAT 98; BMI 34.9
[2018-05-07] MEDS: Morphine 4 MG/ML Syringe IV (12:36)
[2018-05-07] MEDS: diazePAM 5 MG Tablet PO (12:36)
[2018-05-07] MEDS: Ondansetron 4 MG/2 ML Vial IV (12:36)
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
[2018-05-07 13:28] VITALS: BP 137/82; PULSE 81; RESP 18; O2SAT 95
== END 2018-05-07 13:29 | disposition home or self-care (01) ==
PROVIDERS: Emergency Provider Emergency Medicine; Family Provider Family Medicine; PCP Family Medicine
DX: M54.5 Low back pain (principal); M25.511 Pain in right shoulder; V89.2XXD Person injured in unspecified motor-vehicle accident, traffic, subsequent encounter; R05 Cough; I25.10 Atherosclerotic heart disease of native coronary artery without angina pectoris; E11.9 Type 2 diabetes mellitus without complications; E78.00 Pure hypercholesterolemia, unspecified; F32.9 Major depressive disorder, single episode, unspecified; Z79.899 Other long term (current) drug therapy; Z87.891 Personal history of nicotine dependence
CPT/HCPCS: 96374; 96375; 99283; A4216; J2405

== ENCOUNTER 2018-05-20 17:52 | Emergency (ER) | payer MEDICARE, MEDICAID, SELFPAY ==
[2018-05-20 17:53] VITALS: BP 109/63; PULSE 105; RESP 28; TEMP 37.1; O2SAT 93; BMI 34.9
--- NOTE | 2018-05-20 18:32 | ED.VISSUMM ---
- ER Visit Summary Date of Service: 05/20/18 Chief Complaint: Shortness of breath History of Present Illness: The patient is a 57 F who presents with shortness of breath that began today. Patient states she was having some difficulty breathing this morning. Patient states she has been having some intermittent chest pain throughout the day today. Patient states her breathing is worse when she lays flat. Patient states she did take her rescue inhaler which seemed to help. Patient denies any fevers. Patient admits to a cough with some white and green sputum. Patient also admits to some nausea but denies any vomiting. Patient admits to some myalgias and headache. Patient also states she has been having some dysuria where her urine feels hot. Physical Examination: Vital signs are stable. Patient is afebrile. Patient is in no acute distress. Oral mucosa is pink and moist. Neck is supple. Trachea is midline. There is no JVD noted. Heart was regular and tachycardic. Lungs are diminished but clear bilaterally. There is adequate respiratory effort noted. Abdomen is soft. Bowel sounds are normal. There is no tenderness. There is no rebound or guarding noted. Cranial nerves II through XII are intact. There are no focal motor or sensory deficits noted. Test Results: CBC and basic metabolic profile were within normal limits. Urinalysis was normal. PA and lateral chest x-rays obtained. There is COPD but there is no acute infiltrate or consolidation. Emergency Department Course and Treatment: Patient was instructed to continue her inhaler as needed. Patient was instructed to follow-up with her primary care physician in 5-7 days. Patient understood and was agreeable with the plan. All questions were answered. Disposition: Discharged home Impression: COPD exacerbation This note was generated with [employer] dictation software. It may contain incorrect words, spelling, and punctuation that were not noted in review of the chart prior to signing ED Disposition - Plan for ED Patient: Disposition: Home or Assisted Living Chief Complaint: Shortness of Breath Diagnosis: COPD exacerbation Instructions: ED COPD Flare Referrals: Edvin West MD [Primary Care Provider] -
[2018-05-20 18:43] VITALS: PULSE 94; RESP 22
[2018-05-20] MEDS: Ipratropium/Albuterol Sulfate 3 ML AMPUL.NEB INHALATION (18:43)
[2018-05-20 18:50] LABS: Absolute Lymphocyte Count 1.94 X10^3/ul (0.83-4.51); Absolute Neutrophil Count 7.7 X10^3/uL (2.0-7.7); Basophil# 0.03 X10^3/uL; Basophil% 0.3 % (0-1); Eosinophil# 0.33 X10^3/uL; Eosinophils% 3.1 % (0-5); Hematocrit 38.6 % (37-47); Hemoglobin 12.5 g/dl (12.0-15.0); Lymphocyte # 1.94 X10^3/ul (4.0); Lymphocyte % 18.2 % (19-41); Mean Corp Hgb Conc 32.4 g/gl (32-36); Mean Corpuscular Hgb 29.5 pg (27.0-32.0); Mean Platelet Vol. 8.8 fl (6.2-12.0); Monocyte# 0.66 X10^3/uL; Monocyte% 6.2 % (0-10); Neutrophil # 7.66 X10^3/uL (2.7-7.7); POSITIVE COUNT NO; POSITIVE DIFFERENTIAL NO; POSITIVE MORPHOLOGY NO; Platelet Count 227 K/mm3 (150-450); RBC Distribution Width CV 13.3 % (11.6-14.6); RBC Distribution Width SD 44.1 fl (35.1-43.9); Red Blood Count 4.24 M/mm3 (4.2-5.4); White Blood Count 10.6 K/mm3 (4.4-11.0)
[2018-05-20 19:03] LABS: Anion Gap 9 (5-15); BUN 14 mg/dL (7-18); BUN/Creat Ratio 13.9 RATIO (10-20); Calcium,Total 8.8 mg/dL (8.5-10.1); Chloride 103 mmol/L (98-107); Creatinine, Serum 1.01 mg/dL (0.55-1.02); EST Glomerular Filtration Rate 60 mL/min (>60); Est Glom Filt Rate - Afr Amer 72 mL/min (>60); Glucose 94 mg/dL (74-106); Potassium 3.9 mmol/L (3.5-5.1); Sodium Level 140 mmol/L (136-145)
[2018-05-20 19:38] LABS: Bacteria 0 SEEN /hpf (None Seen); Mucous, Urine 0 SEEN /hpf (<or=2+); Red Blood Cells-Urine 0 SEEN /hpf (0-5)
[2018-05-20 19:40] LABS: Color, Urine Yellow (Yellow); Glucose, Dipstick Normal (Normal); Ketone-Dipstick Negative (Negative); Leukocyte Esterase-Dipstick 500 /ul (Negative); Nitrite-Dipstick Negative (Negative); Occult Blood-Urine Negative /ul (Negative); Protein-Dipstick Negative (Negative); Urine Bilirubin Dipstick Negative (Negative); Urine Clarity Clear (Clear); Urine Urobilinogen Normal (Normal)
[2018-05-20 19:48] LABS: White Blood Cells 0-5 SEEN /hpf (0-5)
[2018-05-20 19:49] LABS: Squamous Epithelial Cells - UA 0-5 SEEN /hpf (5-10)
[2018-05-20 20:34] VITALS: BP 112/58; PULSE 79; RESP 16; O2SAT 94
[2018-05-20] MEDS: Acetaminophen 500 MG Tablet 1000 MG PO (20:36)
--- NOTE | 2018-05-21 14:56 | CM.ED ---
ED CALLBACK: Follow-up call placed to patient with no answer. Voicemail left with return contact information.
== END 2018-05-20 20:40 | disposition home or self-care (01) ==
PROVIDERS: Emergency Provider Emergency Medicine; Family Provider Family Medicine; PCP Family Medicine
DX: J44.1 Chronic obstructive pulmonary disease with (acute) exacerbation (principal); R30.0 Dysuria; I25.10 Atherosclerotic heart disease of native coronary artery without angina pectoris; I25.2 Old myocardial infarction; E11.9 Type 2 diabetes mellitus without complications; I10 Essential (primary) hypertension; E78.00 Pure hypercholesterolemia, unspecified; K76.0 Fatty (change of) liver, not elsewhere classified; Z87.01 Personal history of pneumonia (recurrent); Z98.84 Bariatric surgery status; Z79.02 Long term (current) use of antithrombotics/antiplatelets; Z79.899 Other long term (current) drug therapy
CPT/HCPCS: 71046; 80048; 81001; 85025; 94640; 99285; A4216

== ENCOUNTER 2018-05-21 20:08 | Emergency (ER) | payer MEDICARE, MEDICAID, SELFPAY ==
[2018-05-21 20:09] VITALS: BP 130/65; PULSE 85; RESP 20; TEMP 37.2; O2SAT 98; BMI 35.0
--- NOTE | 2018-05-21 20:52 | RAD_ITS ---
STUDY: X-RAY - LEFT TIBIA AND FIBULA REASON FOR EXAM: Female, 57 years old. Injury and pain TECHNIQUE: Frontal and lateral views of the tibia and fibula were obtained. COMPARISON: None. FINDINGS: Bones: There are no acute osseous abnormalities. Joints: There are mild degenerative changes in the left knee. Soft tissues: The soft tissues are unremarkable. RAD/Tibia & Fibula 2 Views IMPRESSION: No acute abnormalities are seen in the left lower leg. Electronically Signed: Funmilayo Limon MD at 22:16 EDT Tel Direct: [phone], Service support ,
--- NOTE | 2018-05-21 20:55 | RAD_ITS ---
STUDY: X-RAY - SACRUM/COCCYX REASON FOR EXAM: Female, 57 years old. Injury and pain TECHNIQUE: Three view(s) of the sacrum and coccyx were obtained. COMPARISON: None. FINDINGS: There are mild degenerative changes in the sacroiliac joints. Normal visualized sacral ala and fused sacral bodies. Normal sacrococcygeal junction with a normal angulation. Normal coccygeal segments. There are calcifications in the distal abdominal aorta. There are mild degenerative changes in the lower lumbar spine. RAD/Sacrum-Coccyx min 2 Views IMPRESSION: There are no acute abnormalities seen in the sacrum or coccyx. Electronically Signed: Funmilayo Limon MD at 22:08 EDT Tel Direct: [phone], Service support ,
[2018-05-21] MEDS: morphine 8 MG/ML Syringe IM (21:04)
--- NOTE | 2018-05-21 21:30 | RAD_ITS ---
STUDY: X-RAY - LEFT FOOT CLINICAL: Female, 57 years old. Injury and pain TECHNIQUE: Three view(s) of the foot were obtained. COMPARISON: None. FINDINGS: Bones: There are no acute osseous abnormalities. Joints: There are mild diffuse degenerative changes. Soft tissues: The soft tissues are unremarkable. Foreign body: None RAD/Foot min 3 Views IMPRESSION: No acute abnormalities are seen. Electronically Signed: Funmilayo Limon MD at 22:12 EDT Tel Direct: [phone], Service support ,
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
[2018-05-21] MEDS: HYDROcodone Bitartrate/Apap 5/325 Tablet PO (22:34)
[2018-05-21 22:36] VITALS: BP 129/62; PULSE 74; RESP 16; O2SAT 97
== END 2018-05-21 22:54 | disposition home or self-care (01) ==
LOC: ED 21:59
PROVIDERS: Emergency Provider Emergency Medicine; Family Provider Family Medicine; PCP Family Medicine
DX: M79.605 Pain in left leg (principal); M53.3 Sacrococcygeal disorders, not elsewhere classified; W19.XXXA Unspecified fall, initial encounter; Y93.9 Activity, unspecified; Y92.9 Unspecified place or not applicable; I25.10 Atherosclerotic heart disease of native coronary artery without angina pectoris; J44.9 Chronic obstructive pulmonary disease, unspecified; I10 Essential (primary) hypertension; E78.00 Pure hypercholesterolemia, unspecified; Z95.5 Presence of coronary angioplasty implant and graft; Z98.84 Bariatric surgery status; Z79.02 Long term (current) use of antithrombotics/antiplatelets; Z79.899 Other long term (current) drug therapy
CPT/HCPCS: 72220; 73590; 73630; 96372; 99284

== ENCOUNTER → 2018-07-16 22:44 | Outpatient (CLI) | payer MEDICARE, SELFPAY | PROVIDERS: Family Provider Family Medicine; PCP Family Medicine; Visit Provider Family Medicine | DX: G47.33 Obstructive sleep apnea (adult) (pediatric) (principal); R41.3 Other amnesia | CPT/HCPCS: 95811 ==

== ENCOUNTER 2018-09-02 09:39 | Emergency (ER) | payer MEDICARE, SELFPAY ==
[2018-09-02 09:39] VITALS: BP 167/88; PULSE 84; RESP 16; TEMP 36.7; O2SAT 100; BMI 33.9
--- NOTE | 2018-09-02 10:38 | ED.VISSUMM ---
- ER Visit Summary Date of Service: 09/02/18 Chief Complaint: Back pain History of Present Illness: The patient is a 58 F presenting with back pain. Patient has a history of chronic back pain. She states for the past 1.5-2 weeks pain has been worsening. She is currently in physical therapy. She has been taking Tylenol at home. She has been using heating pads. She states that her pain is not controlled. She denies numbness or weakness. Denies bowel or bladder incontinence. Denies chest pain or shortness of breath. Denies fever. Denies other complaints. Physical Examination: Vitals are stable. Patient is afebrile. Alert no acute distress. HEENT exam is unremarkable. Neck is supple. Lungs are clear and equal bilaterally. Heart is regular rate and rhythm. Abdomen is soft nontender nondistended. Back: Right paraspinal thoracic muscle tenderness, no midline tenderness. Erythema mid back with no blistering Extremities are unremarkable. Skin is warm and dry. No focal neurologic deficit. Normal strength and sensation Remainder of exam is unremarkable. Emergency Department Course and Treatment: Patient given morphine, Zofran IM. She is advised to use heating pad cautiously. She is given prescription for Flexeril. She is advised to follow-up with her primary care physician and continue physical therapy. She is advised to return to ED for worsening complaints. Disposition: Discharge home Impression: Acute on chronic back pain This note was generated with [employer] dictation software. It may contain incorrect words, spelling, and punctuation that were not noted in review of the chart prior to signing ED Disposition - Plan for ED Patient: Chief Complaint: Back Instructions: ED Neck Back Pain General Prescriptions: Cyclobenzaprine [Flexeril] 10 mg PO TID PRN #20 tablet PRN Reason: Muscle Spasm Referrals: Edvin West MD [Primary Care Provider] -
--- NOTE | 2018-09-02 10:40 | ED.DEP ---
ED Disposition - Plan for ED Patient: Chief Complaint: Back Instructions: ED Neck Back Pain General Prescriptions: Cyclobenzaprine [Flexeril] 10 mg PO TID PRN #20 tablet PRN Reason: Muscle Spasm Referrals: Edvin West MD [Primary Care Provider] -
[2018-09-02] MEDS: morphine 10 MG/ML Syringe 8 MG IM (10:59)
[2018-09-02] MEDS: Ondansetron 4 MG/2 ML Vial IM (10:59)
[2018-09-02 11:40] VITALS: BP 120/90; PULSE 67; RESP 14; TEMP 36.9; O2SAT 97
== END 2018-09-02 11:40 | disposition home or self-care (01) ==
LOC: ED 10:43
PROVIDERS: Emergency Provider Emergency Medicine; Family Provider Family Medicine; PCP Family Medicine
DX: M54.9 Dorsalgia, unspecified (principal); G89.29 Other chronic pain; I25.10 Atherosclerotic heart disease of native coronary artery without angina pectoris; I25.2 Old myocardial infarction; E11.9 Type 2 diabetes mellitus without complications; I10 Essential (primary) hypertension; E78.00 Pure hypercholesterolemia, unspecified; Z98.84 Bariatric surgery status; Z79.02 Long term (current) use of antithrombotics/antiplatelets; Z79.899 Other long term (current) drug therapy
CPT/HCPCS: 96372; 99282; J2405

== ENCOUNTER 2018-09-12 22:01 | Emergency (ER) | payer MEDICARE, SELFPAY ==
[2018-09-12 22:01] VITALS: BP 117/71; PULSE 79; RESP 14; TEMP 36.6; O2SAT 98; BMI 36.1
--- NOTE | 2018-09-12 22:05 | EKG12_ITS ---
Test Reason : CP Blood Pressure : / mmHG Vent. Rate : 068 BPM Atrial Rate : 068 BPM P-R Int : 184 ms QRS Dur : 102 ms QT Int : 390 ms P-R-T Axes : 045 010 024 degrees QTc Int : 414 ms Normal sinus rhythm Normal ECG Confirmed by CHERYLE BRADLEY, PRANAV ([id number]), medical transcription editor GENNY ROLAND ([id number]) on 09/14/2018 2:33:47 PM Referred By: DR ESPINOZA Confirmed By:PRANAV LOBATO MD
--- NOTE | 2018-09-12 22:05 | RAD_ITS ---
STUDY: X-RAY CHEST REASON FOR EXAM: Female, 58 years old. Chest pain TECHNIQUE: AP portable COMPARISON: May 20, 2018 FINDINGS: There is minor interstitial thickening primarily in the lower lobes. No focal infiltration.. There is no demonstrated pleural abnormality. Normal size heart. Normal mediastinum and elidia. Normal visualized pulmonary arteries. Normal visualized aortic arch and descending thoracic aorta. Dorsal spine demonstrates spondylosis. Normal visualized ribs, clavicles, and shoulders. There is no demonstrated abnormality of the visualized soft tissue structures of the upper abdomen. No significant change since prior exam RAD/Chest 1 View (Portable) IMPRESSION: Mild chronic interstitial changes at the lung bases. No acute cardiopulmonary pathology Electronically Signed: Jourdan Gomez MD at 23:08 EST , Service support ,
[2018-09-12 22:33] LABS: Absolute Lymphocyte Count 3.03 X10^3/ul (0.83-4.51); Absolute Neutrophil Count 3.6 X10^3/uL (2.0-7.7); Basophil# 0.04 X10^3/uL; Basophil% 0.5 % (0-1); Eosinophil# 0.21 X10^3/uL; Eosinophils% 2.8 % (0-5); Hematocrit 36.9 % (37-47); Hemoglobin 12.5 g/dl (12.0-15.0); Lymphocyte # 3.03 X10^3/ul (4.0); Lymphocyte % 40.3 % (19-41); Mean Corp Hgb Conc 33.9 g/gl (32-36); Mean Corpuscular Volume 88.7 fL (81-99); Mean Platelet Vol. 8.6 fl (6.2-12.0); Monocyte# 0.59 X10^3/uL; Monocyte% 7.9 % (0-10); Neutrophil # 3.63 X10^3/uL (2.7-7.7); Neutrophil % 48.4 % (47-70); Platelet Count 363 K/mm3 (150-450); RBC Distribution Width CV 14.2 % (11.6-14.6); RBC Distribution Width SD 45.3 fl (35.1-43.9); Red Blood Count 4.16 M/mm3 (4.2-5.4); White Blood Count 7.5 K/mm3 (4.4-11.0)
[2018-09-12 22:40] LABS: POSITIVE COUNT NO; POSITIVE DIFFERENTIAL NO; POSITIVE MORPHOLOGY NO
[2018-09-12 22:44] LABS: Anion Gap 9 (5-15); BUN 21 mg/dL (7-18); BUN/Creat Ratio 20.2 RATIO (10-20); Calcium,Total 8.6 mg/dL (8.5-10.1); Chloride 105 mmol/L (98-107); Creatinine, Serum 1.04 mg/dL (0.55-1.02); EST Glomerular Filtration Rate 58 mL/min (>60); Est Glom Filt Rate - Afr Amer 70 mL/min (>60); Estimated Creatinine Clearance 53.06 ml/min; Glucose 99 mg/dL (74-106); Potassium 4.4 mmol/L (3.5-5.1); Sodium Level 135 mmol/L (136-145)
--- NOTE | 2018-09-12 22:53 | EKG12_ITS ---
Test Reason : REPEAT EKG Blood Pressure : / mmHG Vent. Rate : 069 BPM Atrial Rate : 069 BPM P-R Int : 184 ms QRS Dur : 100 ms QT Int : 412 ms P-R-T Axes : 043 005 019 degrees QTc Int : 441 ms Normal sinus rhythm Low voltage QRS Borderline ECG Confirmed by CHERYLE BRADLEY, PRANAV ([id number]), editorial clerk GENNY ROLAND ([id number] on 09/14/2018 2:34:11 PM Referred By: DR DANIELLE Confirmed By:PRANAV LOBATO MD
[2018-09-13 00:01] VITALS: BP 122/60; PULSE 63; RESP 16; O2SAT 98
[2018-09-13] MEDS: Ketorolac 15 MG/ML Vial IV (00:08)
[2018-09-13 01:00] VITALS: BP 119/73; PULSE 66; RESP 16; O2SAT 99
--- NOTE | 2018-09-13 02:03 | ED.VISSUMM ---
- ER Visit Summary Date of Service: 09/13/18 Chief Complaint: Chest pain History of Present Illness: The patient is a 58 F who presents with chest pain. It began about 3 and half hours ago. She reports that she did have some nausea and vomiting about an hour before pain began. She was then removing her sports bra when she had a sudden sharp left-sided chest pain. She states this is now aching in nature. It is worse with certain movements or changes in position. She also reports a recent URI-like illness with congestion rhinorrhea chills and productive cough. Physical Examination: Afebrile vitals are normal Moist mucous membranes Heart regular rate and rhythm Lungs are clear she does have some reproducible left chest wall pain there is no rash Abdomen is soft Test Results: EKG shows normal sinus rhythm at a rate of 68. Laboratory studies are unremarkable with a negative troponin and negative repeat troponin. Chest x-ray shows mild interstitial changes no acute pathology. Emergency Department Course and Treatment: Patient was resting comfortably on reevaluation. She was given some IV Toradol for pain. Her workup is unremarkable as above. Given the atypical description of symptoms reproducible pain unremarkable EKG and negative enzymes I feel this is very unlikely to be due to cardiac ischemia. This is likely related to chest wall strain with bronchitis. She was advised on supportive care. She understands to return for new or worsening symptoms. She was discharged. Treatment Plan: [] Disposition: Discharge Impression: Chest wall pain Bronchitis This note was generated with [employer] dictation software. It may contain incorrect words, spelling, and punctuation that were not noted in review of the chart prior to signing ED Disposition - Plan for ED Patient: Chief Complaint: Chest Pain Referrals: Edvin West MD [Primary Care Provider] -
--- NOTE | 2018-09-13 02:06 | ED.DEP ---
ED Disposition - Plan for ED Patient: Chief Complaint: Chest Pain Instructions: ED Strain Chest Wall Referrals: Edvin West MD [Primary Care Provider] -
[2018-09-13 02:10] VITALS: BP 107/67; PULSE 72; RESP 18; O2SAT 95
== END 2018-09-13 02:28 | disposition home or self-care (01) ==
LOC: ED 22:38
PROVIDERS: Emergency Provider Emergency Medicine; Family Provider Family Medicine; PCP Family Medicine
DX: R07.89 Other chest pain (principal); J40 Bronchitis, not specified as acute or chronic; I25.10 Atherosclerotic heart disease of native coronary artery without angina pectoris; I25.2 Old myocardial infarction; J45.909 Unspecified asthma, uncomplicated; E11.9 Type 2 diabetes mellitus without complications; I10 Essential (primary) hypertension; E78.00 Pure hypercholesterolemia, unspecified; Z98.84 Bariatric surgery status; Z79.02 Long term (current) use of antithrombotics/antiplatelets; Z79.899 Other long term (current) drug therapy
CPT/HCPCS: 36415; 71045; 80048; 84484; 85025; 93005; 96374; 99284; A4216

== ENCOUNTER 2018-09-22 15:15 | Observation (INO) | payer MEDICARE, MEDICAID, SELFPAY ==
[2018-09-22] VITALS (11 sets, daily range): BP systolic 98–135; BP diastolic 52–77; PULSE 73–108; RESP 15–18; TEMP 36.3–36.9; O2SAT 96–98; BMI 36.1; BMI 34.3
--- NOTE | 2018-09-22 15:29 | EKG12_ITS ---
Test Reason : CP Blood Pressure : / mmHG Vent. Rate : 101 BPM Atrial Rate : 101 BPM P-R Int : 168 ms QRS Dur : 094 ms QT Int : 340 ms P-R-T Axes : 041 014 030 degrees QTc Int : 440 ms Sinus tachycardia Otherwise normal ECG Confirmed by GENE BRADLEY, FAYE ([id number]), features editor GENNY ROLAND ([id number]) on 09/25/2018 4:44:02 PM Referred By: Osiel Quinones Confirmed By:FAYE MILLS MD
--- NOTE | 2018-09-22 15:30 | RAD_ITS ---
STUDY: X-RAY CHEST REASON FOR EXAM: Female, 58 years old. Chest pain and shortness of breath. TECHNIQUE: Single frontal view of the chest. COMPARISON: September 12, 2018 FINDINGS: There is stable hyperexpansion. There is no demonstrated pleural abnormality. There is borderline cardiomegaly unchanged. Normal mediastinum and elidia. Normal visualized pulmonary arteries. Normal visualized aortic arch and descending thoracic aorta. Normal visualized thoracic spine. Normal visualized ribs, clavicles, and shoulders. There is no demonstrated abnormality of the visualized soft tissue structures of the upper abdomen. RAD/Chest 1 View (Portable) IMPRESSION: No active or acute cardiopulmonary disease. Electronically Signed: Brain Orta MD at 16:27 EST , Service support ,
--- NOTE | 2018-09-22 15:31 | ED.DCSUM_ITS ---
- ER Visit Summary Date of Service: 09/22/18 Chief Complaint: Chest pain History of Present Illness: The patient is a 58 F presenting with chest pain that started 30 minutes prior to arrival. Patient complained of 8 out of 10 midsternal and left-sided chest pain. She had associated palpitations, shortness of breath, nausea, diaphoresis. She took one nitro. She states her pain went from 8 out of 10 to 3 out of 10 after nitro. She has a history of coronary disease, diabetes, hypertension, hypercholesterolemia. She states she has had 7 stents with the last being in 2009. Her last stress test was in 2014. She denies PE/DVT risk factors. She is on Plavix. She is a previous smoker. Physical Examination: Vitals are stable. Patient is afebrile. Alert no acute distress. HEENT exam is unremarkable. Neck is supple. Lungs are clear and equal bilaterally. Heart is regular and tachycardic Abdomen is soft nontender nondistended. Extremities are unremarkable. Skin is warm and dry. No focal neurologic deficit. Remainder of exam is unremarkable. Emergency Department Course and Treatment: Patient was given aspirin, nitro. EKG is sinus tachycardia rate of 101. CBC, chemistries unremarkable other than glucose 195, BUN 19, creatinine 1.14. Troponin is negative. D-dimer negative. She is pain-free after second nitro. Chest x-ray shows no acute process. Discussed with the hospitalist for observation. Disposition: Observation Impression: Chest pain This note was generated with [employer] dictation software. It may contain incorrect words, spelling, and punctuation that were not noted in review of the chart prior to signing ED Disposition - Plan for ED Patient: Chief Complaint: Chest Pain Referrals: Edvin West MD [Primary Care Provider] -
[2018-09-22 15:36] LABS: Absolute Lymphocyte Count 2.11 X10^3/ul (0.83-4.51); Absolute Neutrophil Count 5.1 X10^3/uL (2.0-7.7); Basophil# 0.02 X10^3/uL; Basophil% 0.3 % (0-1); Eosinophil# 0.09 X10^3/uL; Eosinophils% 1.2 % (0-5); Hematocrit 39.8 % (37-47); Hemoglobin 13.1 g/dl (12.0-15.0); Lymphocyte # 2.11 X10^3/ul (4.0); Lymphocyte % 27.1 % (19-41); Mean Corp Hgb Conc 32.9 g/gl (32-36); Mean Corpuscular Hgb 29.5 pg (27.0-32.0); Mean Corpuscular Volume 89.6 fL (81-99); Mean Platelet Vol. 8.8 fl (6.2-12.0); Monocyte# 0.47 X10^3/uL; Neutrophil # 5.07 X10^3/uL (2.7-7.7); Neutrophil % 65.1 % (47-70); Platelet Count 244 K/mm3 (150-450); RBC Distribution Width SD 45.5 fl (35.1-43.9); Red Blood Count 4.44 M/mm3 (4.2-5.4); White Blood Count 7.8 K/mm3 (4.4-11.0)
[2018-09-22] MEDS: Aspirin 81 MG TAB.CHEW 324 MG PO (15:40)
[2018-09-22 15:42] LABS: POSITIVE COUNT NO; POSITIVE DIFFERENTIAL NO; POSITIVE MORPHOLOGY NO
[2018-09-22 15:50] LABS: D-Dimer Quantitative (DVT/PE) 0.41 FEU/ug/m (0.27-0.49)
[2018-09-22 15:53] LABS: Anion Gap 10 (5-15); BUN 19 mg/dL (7-18); BUN/Creat Ratio 16.7 RATIO (10-20); Calcium,Total 9.1 mg/dL (8.5-10.1); Chloride 106 mmol/L (98-107); Creatinine, Serum 1.14 mg/dL (0.55-1.02); EST Glomerular Filtration Rate 52 mL/min (>60); Est Glom Filt Rate - Afr Amer 63 mL/min (>60); Glucose 195 mg/dL (74-106); Potassium 3.5 mmol/L (3.5-5.1); Sodium Level 138 mmol/L (136-145)
--- NOTE | 2018-09-22 16:55 | PCM.HP.STD ---
Problem List (1) Chest pain Status: Acute History of Present Illness Date of Admission: 09/22/18 Chief Complaint: chest tightness The patient is a 58 year old F who was in her normal state of health where she developed left-sided chest pain. Took nitroglycerin which relieved the symptoms. Patient had associated shortness of breath and nausea with this. Patient has had chest tightness similar but did not have diaphoresis this time as she has had previouslyIn the emergency roomwith prior heart attacks. Patient was concerned and presented to the emergency room. Patient had a workup that was unremarkable. She did receive aspirin and nitroglycerin. Patient is currently pain-free. [] Past Medical History Past Medical History (Chronic Problems): Chronic Problems (Last Updated 12/27/17 @ 15:20 by Bárbara Larios) Diabetes mellitus (Chronic) Coronary artery disease (Chronic) Hyperlipidemia (Chronic) Anxiety disorder (Chronic) Depression (Chronic) Asthma/COPD (Chronic) Medical History: Medical History (Last Reviewed 09/22/18 @ 16:57 by Osiel Quinones DO) Pneumonia (Acute) J18.9 Diabetes mellitus (Chronic) E11.9 Coronary artery disease (Chronic) I25.10 Hyperlipidemia (Chronic) E78.5 Anxiety disorder (Chronic) F41.9 Depression (Chronic) F32.9 Acute asthma exacerbation (Acute) J45.901 Asthma/COPD (Chronic) Chills with fever (Acute) R50.9 Productive cough (Acute) R05 Allergies No Known Allergies Allergy (Verified 09/22/18 15:15) Home Medications: Ambulatory Orders Medication Instructions Recorded ALPRAZolam [Xanax] 1 mg PO QHS PRN 06/22/17 Albuterol Aerosols [Ventolin 2.5 mg INHALATION Q4H PRN PRN 06/22/17 Aerosols] Albuterol IH (ProAir) [Proair Hfa] 1 puff INHALATION Q4H PRN PRN 06/22/17 Bupropion HCl [Wellbutrin Xl] 300 mg PO DAILY 06/22/17 Clopidogrel Bisulfate [Plavix] 75 mg PO DAILY 06/22/17 Docusate Sodium [Colace] 100 mg PO DAILY PRN PRN 06/22/17 Fluticasone 0.05% [Flonase Nasal 2 spray NASAL DAILY 06/22/17 [place]] Nitroglycerin 1 tab PO Q5M 06/22/17 Nystatin Powder [Mycostatin Powder] 1 applic TOPICAL BID 06/22/17 Atorvastatin Calcium [Lipitor] 40 mg PO QHS 09/13/17 Melatonin 10 mg PO QHS 09/13/17 Montelukast [Singulair] 10 mg PO QHS 09/13/17 duloxetine 30 mg capsule,delayed 60 mg PO BID cap 12/27/17 release furosemide 20 mg tablet 20 mg PO DAILY 12/27/17 lisinopril 10 mg tablet 10 mg PO QDAY 12/27/17 mometasone-formoterol HFA 200 2 puff INHALATION BID 12/27/17 mcg-5 mcg/actuation aerosol inhaler omeprazole 20 mg capsule,delayed 40 mg PO DAILY cap 12/27/17 release ramipril 10 mg capsule 10 mg PO QDAY 12/27/17 ursodiol 300 mg capsule 300 mg PO BID 12/27/17 Cyclobenzaprine [Flexeril] 10 mg PO TID PRN #20 tablet 09/02/18 Naproxen [Naprosyn] 500 mg PO BID #14 tab 09/13/18 Surgical History: Surgical History (Last Reviewed 09/22/18 @ 16:57 by Osiel Quinones DO) H/O section Z98.891 x 2 H/O colonoscopy Z98.890 2011 H/O gastric bypass Z98.84 H/O heart artery stent Z95.5 x 7 Surgical History: dilatation and curettage, - - Coronary artery stents, gastric bypass Psychiatric History: Anxiety, Depression [employer] History: No pertinent [employer] history Smoking Status: Former smoker - *Family History Paternal Family History: Family History (Last Reviewed 09/22/18 @ 16:57 by Osiel Quinones DO) Mother Diabetes Hypertension Father Cancer History Items: Cancer - Lung cancer Maternal Family History: Family History (Last Reviewed 09/22/18 @ 16:57 by Osiel Quinones DO) Mother Diabetes Hypertension Father Cancer History Items: Diabetes, - - Cirrhosis of the liver Sibling Family History: Family History (Last Reviewed 09/22/18 @ 16:57 by Osiel Quinones DO) Mother Diabetes Hypertension Father Cancer History Items: Cancer - Lung cancer, - - pulmonary fibrosis Review of Systems Constitutional: Reports: Malaise. Denies: Anorexia, Chills, Fever Eyes: Denies: Blurred vision, Double vision HEENT: Denies: Head Aches, Sinus Congestion, Sinus Drainage Cardiovascular: Reports: Chest Pain, Heaviness. Denies: Edema Respiratory: Reports: Shortness of Breath. Denies: Cough Gastrointestinal: Reports: Nausea. Denies: Abdominal Pain, Vomiting Genitourinary: Denies: Dysuria Musculoskeletal: Denies: Joint Pain, Joint Tenderness Skin: Denies: Rash, Wounds Neurological: Reports: - - back numbness. Denies: Blurred vision, Double vision, Slurred speech Psychiatric: Reports: Anxiety. Denies: Depression Endocrine: Reports: Change in Body Habitus - lost 100 pounds since gastric bypass 2 years ago. Hematologic/ Lymphatic: Denies: Easy Bruising, Easy Bleeding, Hx of blood clot Comment: A 10 point review of systems were negative except as mentioned in the history of present illness and the other review of systems. VTE Information - Inpt Only VTE Present on Admission: No VTE Pharm Prophylaxis ordered?: Yes Patient Problems: Active and Suspected Problems (Last Updated 12/27/17 @ 15:20 by Bárbara Larios) Chest pain (Acute) - Physical Exam General: Alert, Cooperative, No apparent distress HEENT: Atraumatic, Normocephalic Oral: Moist Mucosa, No Gingival or Mucosal Lesions/ Ulcerations Neck: No Nodes, Thyroid Normal Size and Texture Lungs: Clear to auscultation, Normal air movement, No rhonchi, No wheeze Cardiovascular: Regular rate, Regular Rhythm, Normal S1, Normal S2, No murmurs Abdomen: Bowel Sounds Present, Soft, Non Tender, Non-Distended, No Hepato-splenomegaly Extremities: No edema, No Calf Tenderness Skin: No rashes, No breakdown Musculoskeletal: No Tenderness to Palpation of Joints or Extremities, No Muscle Wasting Psych/Mental Status: Normal Affect, Appropriate Vital Signs Temp Pulse Resp BP Pulse Ox 36.6 C 79 15 104/58 L 98 09/22/18 15:16 09/22/18 16:15 09/22/18 16:15 09/22/18 16:15 09/22/18 16:15 Oxygen Flow Rate (L/min) 2 Oxygen Delivery Method Nasal Cannula Weight: 98.43 kg Body Mass Index (BMI) 36.1 Laboratory Tests Past 24 Hrs 09/22/18 09/22/18 09/22/18 15:25 15:25 15:25 WBC 7.8 RBC 4.44 Hgb 13.1 Hct 39.8 MCV 89.6 MCH 29.5 MCHC 32.9 RDW 14.0 RDW Differential 45.5 H Plt Count 244 MPV 8.8 Immature Gran % (Auto) 0.300 Neut % (Auto) 65.1 Lymph % (Auto) 27.1 [place] % (Auto) 6.0 Eos % (Auto) 1.2 Baso % (Auto) 0.3 Absolute Neuts (auto) 5.1 Absolute Lymphs (auto) 2.11 Total Counted Not Reportable D-Dimer Quant (PE/DVT) 0.41 Sodium 138 Potassium 3.5 Chloride 106 Carbon Dioxide 22.0 Anion Gap 10 BUN 19 H Creatinine 1.14 H Estim Creat Clear Calc 48.40 Est GFR (MDRD) Af Amer 63 Est GFR (MDRD) Non-Af 52 L BUN/Creatinine Ratio 16.7 Glucose 195 H Calcium 9.1 Troponin I < 0.015 EKG showed a heart rate of 101, but without any acute changes. Clinical Impression(s) from Imaging Studies Chest X-Ray 09/22/18 15:30 IMPRESSION: No active or acute cardiopulmonary disease. Electronically Signed: Brain Orta MD at 16:27 EST , Service support , Assessment/Plan All Active Problems (Last Updated 12/27/17 @ 15:20 by Bárbara Larios) Chest pain (Acute) Pneumonia (Acute) Acute asthma exacerbation (Acute) Chills with fever (Acute) Productive cough (Acute) 1. Chest pain Currently chest pain-free Similar to prior events of heart attacks Will continue with the patient's home clopidogrel, atorvastatin Add 81 mg of aspirin Plan is for a nuclear chemical stress test. Patient aware that it will not be performed until the given that the staff is not available on Sundays. 20 the patient that if her troponins become abnormal or if her stress test is abnormal and then will consult cardiology. Reassure the patient that she is not having a heart attack at this time. DAVID score 3 Heart Score 5 2. DVT prophylaxis with Lovenox Code Visit OBSV E&M: 50416 Initial observation care L2
[2018-09-22] MEDS: Nystatin Powder 15gm Bottle 1 APPLIC TOPICAL (22:11)
[2018-09-22] MEDS: MELATONIN 10 MG TABLET PO (22:11)
[2018-09-22] MEDS: Atorvastatin Calcium 40 MG Tablet PO (22:11)
[2018-09-22] MEDS: RisperiDONE 2 MG Tablet PO (22:12)
[2018-09-22] MEDS: Montelukast 10 MG Tablet PO (22:12)
[2018-09-22] MEDS: Topiramate 100 MG Tablet PO (22:13)
[2018-09-22] MEDS: ALPRAZolam 0.5 MG Tablet 1 MG PO (22:19)
[2018-09-22] MEDS: buPROPion (SR) 150 MG Tablet.SA PO (22:31)
[2018-09-22] MEDS: Furosemide 20 MG Tablet PO (22:31)
[2018-09-22] MEDS: Ramipril 10 MG Capsule PO (22:31)
[2018-09-22] MEDS: Budesonide Respules 0.5 MG/2 ML AMPUL.NEB. INHALATION (23:55)
[2018-09-22] MEDS: Albuterol 2.5 MG/3 ML VIAL.NEB. INHALATION (23:55)
[2018-09-23] VITALS (13 sets, daily range): BP systolic 102–125; BP diastolic 51–68; PULSE 71–92; RESP 14–18; TEMP 36.3–36.7; O2SAT 96–99
[2018-09-23] MEDS: Albuterol 2.5 MG/3 ML VIAL.NEB. INHALATION ×2 (07:05→19:35)
[2018-09-23 07:24] LABS: Cholesterol 113 mg/dL (200); High Density Lipoprotein 47 mg/dL; Triglycerides 58 mg/dL; Very Low Density Lipoprotein 12 mg/dL (5-40)
--- NOTE | 2018-09-23 09:10 | PCM.PN.HOSP ---
Patient Problems: Active and Suspected Problems (Last Reviewed 09/22/18 @ 16:57 by Osiel Quinones DO) Chest pain (Acute) Subjective: Denies any chest pain currently or shortness of breath. She states that she feels well Vitals/I&O's: Vital Signs Temp Pulse Resp BP Pulse Ox 98.0 F 84 16 102/51 L 98 09/23/18 04:30 09/23/18 07:05 09/23/18 07:05 09/23/18 04:30 09/23/18 07:05 Oxygen Flow Rate (L/min) 2 Oxygen Delivery Method Room Air Weight: 206 lb 5.643 oz Body Mass Index (BMI) 34.3 Intake and Output for Last 24 Hours 09/21/18 09/22/18 09/23/18 23:59 23:59 23:59 Intake Total 420 / 420 Balance 420 / 420 General: Alert, Oriented x3, Cooperative, No apparent distress HEENT: Atraumatic, EOMI, Normocephalic Oral: Moist Mucosa Neck: Supple, No JVD, Trachea Midline Lungs: Clear to auscultation, Normal air movement, No rhonchi, No wheeze, No rales Cardiovascular: Regular rate, Regular Rhythm, Normal S1, Normal S2, No murmurs Abdomen: Soft, Non Tender, Non-Distended, No Hepato-splenomegaly Extremities: No edema, Capillary Refill Less than 3 Seconds Skin: No rashes, No breakdown Neurological: Neuro grossly intact, Sensory exam intact to light touch and pain Psych/Mental Status: Normal Affect, Appropriate Laboratory Results 09/22/18 15:25: WBC 7.8, RBC 4.44, Hgb 13.1, Hct 39.8, MCV 89.6, MCH 29.5, MCHC 32.9, RDW 14.0, RDW Differential 45.5 H, Plt Count 244, MPV 8.8, Immature Gran % (Auto) 0.300, Neut % (Auto) 65.1, Lymph % (Auto) 27.1, [place] % (Auto) 6.0, Eos % (Auto) 1.2, Baso % (Auto) 0.3, Absolute Neuts (auto) 5.1, Absolute Lymphs (auto) 2.11, Total Counted Not Reportable 09/22/18 15:25: D-Dimer Quant (PE/DVT) 0.41 09/22/18 15:25: Sodium 138, Potassium 3.5, Chloride 106, Carbon Dioxide 22.0, Anion Gap 10, BUN 19 H, Creatinine 1.14 H, Estim Creat Clear Calc 48.40, Est GFR (MDRD) Af Amer 63, Est GFR (MDRD) Non-Af 52 L, BUN/Creatinine Ratio 16.7, Glucose 195 H, Calcium 9.1, Troponin I < 0.015 09/22/18 18:10: Troponin I < 0.015 09/22/18 20:55: Troponin I < 0.015 09/23/18 06:04: Triglycerides 58, Cholesterol 113, LDL Cholesterol 54, VLDL Cholesterol 12, HDL Cholesterol 47 Current Medications Albuterol Sulfate (Ventolin Aerosols) 2.5 mg INHALATION Q4H PRN PRN PRN Reason: SOB &/OR WHEEZING Albuterol Sulfate (Ventolin Aerosols) 2.5 mg INHALATION Q6HWA.RT [facility] Last Admin: 09/23/18 07:05 Dose: 2.5 mg Alprazolam (Xanax) 1 mg PO QHS PRN PRN Reason: ANXIETY Last Admin: 09/22/18 22:19 Dose: 1 mg Atorvastatin Calcium (Lipitor) 40 mg PO QHS [facility] Last Admin: 09/22/18 22:11 Dose: 40 mg Budesonide (Pulmicort Aerosol) 0.5 mg INHALATION Q12H.RT [facility] Last Admin: 09/22/18 23:55 Dose: 0.5 mg Bupropion HCl (Wellbutrin Sr (150mg Tablets)) 150 mg PO BID [facility] Last Admin: 09/22/18 22:31 Dose: 150 mg Clopidogrel Bisulfate (Plavix) 75 mg PO DAILY [facility] Docusate Sodium (Colace) 100 mg PO DAILY PRN PRN PRN Reason: Constipation Enoxaparin Sodium (Lovenox) 40 mg SC DAILY@1000 [facility] Fluticasone Propionate (Flonase Nasal [place]) 2 spray NASAL DAILY [facility] Furosemide (Lasix) 20 mg PO BIDLX [facility] Last Admin: 09/22/18 22:31 Dose: 20 mg Magnesium Hydroxide (Milk Of Magnesia) 30 ml PO DAILY PRN PRN Reason: Constipation Melatonin (Melatonin) 10 mg PO QHS [facility] Last Admin: 09/22/18 22:11 Dose: 10 mg Montelukast Sodium (Singulair) 10 mg PO QHS [facility] Last Admin: 09/22/18 22:12 Dose: 10 mg Nitroglycerin (Nitrostat) 0.4 mg SUBLINGUAL Q5M PRN PRN Reason: chest pain Nutritional Formula (Lactose Free) (Ensure Enlive) 120 ml PO 4X/DAY [facility] Last Admin: 09/22/18 22:10 Dose: 120 ml Nystatin (Mycostatin Powder) 1 applic TOPICAL BID [facility]; Protocol Last Admin: 09/22/18 22:11 Dose: 1 applicatio Pantoprazole Sodium (Protonix) 40 mg PO DAILY [facility] Ramipril (Altace) 10 mg PO QHS [facility] Last Admin: 09/22/18 22:31 Dose: 10 mg Risperidone (Risperdal) 1 mg PO DAILY [facility] Risperidone (Risperdal) 2 mg PO QHS [facility] Last Admin: 09/22/18 22:12 Dose: 2 mg Sodium Chloride () 5 - 15 ml IV UD PRN PRN Reason: SALINE FLUSH Topiramate (Topamax) 100 mg PO QHS [facility] Last Admin: 09/22/18 22:13 Dose: 100 mg Medical Necessity - Tobacco Use Smoking Status: Former smoker Assessment/Plan All Active Problems (Last Reviewed 09/22/18 @ 16:57 by Osiel Quinones DO) Chest pain (Acute) Pneumonia (Acute) Acute asthma exacerbation (Acute) Chills with fever (Acute) Productive cough (Acute) 1. Chest pain/hypertension/hyperlipidemia/coronary artery disease status post stent -Her chest pain was relieved with nitroglycerin before she got to the ER -Troponin is negative x3 -We will continue with her Plavix, Lipitor, Lasix, ramipril -Plan for nuclear stress test in the morning 2. Restrictive lung disease -Stable -We will continue with her albuterol, Singulair, Dulera 3. GERD -Stable -Continue with home PPI 4. Anxiety/depression -Continue with Wellbutrin and Xanax -Stable DVT: Lovenox Code Visit Inpatient E&M: 54541 Subs Hosp L2
--- NOTE | 2018-09-23 09:25 | PN_ITS ---
Patient Problems: Active and Suspected Problems (Last Reviewed 09/22/18 @ 16:57 by Osiel Quinones DO) Chest pain (Acute) Subjective: Denies any chest pain currently or shortness of breath. She states that she feels well Vitals/I&O's: Vital Signs Temp Pulse Resp BP Pulse Ox 98.0 F 84 16 102/51 L 98 09/23/18 04:30 09/23/18 07:05 09/23/18 07:05 09/23/18 04:30 09/23/18 07:05 Oxygen Flow Rate (L/min) 2 Oxygen Delivery Method Room Air Weight: 206 lb 5.643 oz Body Mass Index (BMI) 34.3 Intake and Output for Last 24 Hours 09/21/18 09/22/18 09/23/18 23:59 23:59 23:59 Intake Total 420 / 420 Balance 420 / 420 General: Alert, Oriented x3, Cooperative, No apparent distress HEENT: Atraumatic, EOMI, Normocephalic Oral: Moist Mucosa Neck: Supple, No JVD, Trachea Midline Lungs: Clear to auscultation, Normal air movement, No rhonchi, No wheeze, No rales Cardiovascular: Regular rate, Regular Rhythm, Normal S1, Normal S2, No murmurs Abdomen: Soft, Non Tender, Non-Distended, No Hepato-splenomegaly Extremities: No edema, Capillary Refill Less than 3 Seconds Skin: No rashes, No breakdown Neurological: Neuro grossly intact, Sensory exam intact to light touch and pain Psych/Mental Status: Normal Affect, Appropriate Laboratory Results 09/22/18 15:25: WBC 7.8, RBC 4.44, Hgb 13.1, Hct 39.8, MCV 89.6, MCH 29.5, MCHC 32.9, RDW 14.0, RDW Differential 45.5 H, Plt Count 244, MPV 8.8, Immature Gran % (Auto) 0.300, Neut % (Auto) 65.1, Lymph % (Auto) 27.1, [place] % (Auto) 6.0, Eos % (Auto) 1.2, Baso % (Auto) 0.3, Absolute Neuts (auto) 5.1, Absolute Lymphs (auto) 2.11, Total Counted Not Reportable 09/22/18 15:25: D-Dimer Quant (PE/DVT) 0.41 09/22/18 15:25: Sodium 138, Potassium 3.5, Chloride 106, Carbon Dioxide 22.0, Anion Gap 10, BUN 19 H, Creatinine 1.14 H, Estim Creat Clear Calc 48.40, Est GFR (MDRD) Af Amer 63, Est GFR (MDRD) Non-Af 52 L, BUN/Creatinine Ratio 16.7, Glucose 195 H, Calcium 9.1, Troponin I < 0.015 09/22/18 18:10: Troponin I < 0.015 09/22/18 20:55: Troponin I < 0.015 09/23/18 06:04: Triglycerides 58, Cholesterol 113, LDL Cholesterol 54, VLDL Cholesterol 12, HDL Cholesterol 47 Current Medications Albuterol Sulfate (Ventolin Aerosols) 2.5 mg INHALATION Q4H PRN PRN PRN Reason: SOB &/OR WHEEZING Albuterol Sulfate (Ventolin Aerosols) 2.5 mg INHALATION Q6HWA.RT [facility] Last Admin: 09/23/18 07:05 Dose: 2.5 mg Alprazolam (Xanax) 1 mg PO QHS PRN PRN Reason: ANXIETY Last Admin: 09/22/18 22:19 Dose: 1 mg Atorvastatin Calcium (Lipitor) 40 mg PO QHS [facility] Last Admin: 09/22/18 22:11 Dose: 40 mg Budesonide (Pulmicort Aerosol) 0.5 mg INHALATION Q12H.RT [facility] Last Admin: 09/22/18 23:55 Dose: 0.5 mg Bupropion HCl (Wellbutrin Sr (150mg Tablets)) 150 mg PO BID [facility] Last Admin: 09/22/18 22:31 Dose: 150 mg Clopidogrel Bisulfate (Plavix) 75 mg PO DAILY [facility] Docusate Sodium (Colace) 100 mg PO DAILY PRN PRN PRN Reason: Constipation Enoxaparin Sodium (Lovenox) 40 mg SC DAILY@1000 [facility] Fluticasone Propionate (Flonase Nasal [place]) 2 spray NASAL DAILY [facility] Furosemide (Lasix) 20 mg PO BIDLX [facility]CLUD[facility] Last Admin: 09/22/18 22:31 Dose: 20 mg Magnesium Hydroxide (Milk Of Magnesia) 30 ml PO DAILY PRN PRN Reason: Constipation Melatonin (Melatonin) 10 mg PO QHS [facility] Last Admin: 09/22/18 22:11 Dose: 10 mg Montelukast Sodium (Singulair) 10 mg PO QHS [facility] Last Admin: 09/22/18 22:12 Dose: 10 mg Nitroglycerin (Nitrostat) 0.4 mg SUBLINGUAL Q5M PRN PRN Reason: chest pain Nutritional Formula (Lactose Free) (Ensure Enlive) 120 ml PO 4X/DAY [facility] Last Admin: 09/22/18 22:10 Dose: 120 ml Nystatin (Mycostatin Powder) 1 applic TOPICAL BID [facility]; Protocol Last Admin: 09/22/18 22:11 Dose: 1 applicatio Pantoprazole Sodium (Protonix) 40 mg PO DAILY [facility] Ramipril (Altace) 10 mg PO QHS [facility] Last Admin: 09/22/18 22:31 Dose: 10 mg Risperidone (Risperdal) 1 mg PO DAILY [facility] Risperidone (Risperdal) 2 mg PO QHS [facility] Last Admin: 09/22/18 22:12 Dose: 2 mg Sodium Chloride () 5 - 15 ml IV UD PRN PRN Reason: SALINE FLUSH Topiramate (Topamax) 100 mg PO QHS [facility] Last Admin: 09/22/18 22:13 Dose: 100 mg Medical Necessity - Tobacco Use Smoking Status: Former smoker Assessment/Plan All Active Problems (Last Reviewed 09/22/18 @ 16:57 by Osiel Quinones DO) Chest pain (Acute) Pneumonia (Acute) Acute asthma exacerbation (Acute) Chills with fever (Acute) Productive cough (Acute) 1. Chest pain/hypertension/hyperlipidemia/coronary artery disease status post stent -Her chest pain was relieved with nitroglycerin before she got to the ER -Troponin is negative x3 -We will continue with her Plavix, Lipitor, Lasix, ramipril -Plan for nuclear stress test in the morning 2. Restrictive lung disease -Stable -We will continue with her albuterol, Singulair, Dulera 3. GERD -Stable -Continue with home PPI 4. Anxiety/depression -Continue with Wellbutrin and Xanax -Stable DVT: Lovenox Code Visit Inpatient E&M: 62813 Subs Hosp L2
[2018-09-23] MEDS: Furosemide 20 MG Tablet PO ×2 (10:13→16:51)
[2018-09-23] MEDS: buPROPion (SR) 150 MG Tablet.SA PO ×2 (10:13→22:07)
[2018-09-23] MEDS: RisperiDONE 1 MG Tablet PO (10:13)
[2018-09-23] MEDS: Fluticasone 0.05% 1 SPRAY NASAL.SRY 2 SPRAY NASAL (10:14)
[2018-09-23] MEDS: Clopidogrel Bisulfate 75 MG Tablet PO (10:14)
[2018-09-23] MEDS: Pantoprazole Sodium 40 MG Tablet PO (10:14)
[2018-09-23] MEDS: Enoxaparin 40 MG/0.4 ML Syringe SC (10:14)
[2018-09-23] MEDS: Nystatin Powder 15gm Bottle 1 APPLIC TOPICAL ×2 (10:15→22:04)
--- NOTE | 2018-09-23 13:00 | CM.ED ---
SOCIAL WORK NOTE RECEIVED REFERRAL FROM CABLE TENDER OF DIVISION ROADMASTER FROM ON-CALL REFERRAL. PT REQUESTING TO SPEAK WITH ENRIQUE. NO ENRIQUE AVAILABLE THIS DAY. THIS WORKER MET WITH PT AT BEDSIDE. PT'S SIGNIFICANT OTHER, JULIO RIVERA ([phone]) PRESENT IN ROOM. PT GAVE PERMISSION FOR THIS WORKER TO SPEAK OPENLY IN FRONT OF VISITOR. UPDATED ENRIQUE RAY ABLE TO FOLLOW UP WITH PT TOMORROW AND THIS WORKER OFFERED SUPPORT. PT STATES HAS HX OF ANXIETY AND DEPRESSION AND FOLLOWS WITH THE [facility]. PT REPORTS MANY FAMILY STRESSORS AND GOT ANXIOUS OVER THE STRESS TEST TOMORROW. MUCH EDUCATION, ACTIVE LISTENING, AND EMOTIONAL SUPPORT PROVIDED. PT STATES FEELS BETTER AFTER SPEAKING WITH THIS WORKER AND REQUESTS A FOLLOW UP LATER THIS DAY. UPDATED PT'S NURSE, IESHA. THIS WORKER TO FOLLOW UP THIS EVENING. DARLYN JACOBSEN, CAPTAIN OF GUARDS, SOFTWARE ENGINEER BACKEND.
--- NOTE | 2018-09-23 19:00 | CM.ED ---
SOCIAL WORK NOTE THIS WORKER TO FLOOR TO FOLLOW UP WITH PT. PT AND SIG OTHER ASLEEP AT BEDSIDE. UPDATED NURSE.
[2018-09-23] MEDS: Budesonide Respules 0.5 MG/2 ML AMPUL.NEB. INHALATION (19:35)
[2018-09-23] MEDS: 0.9% NaCl Peripheral Flush Adult/Peds IV (21:59)
[2018-09-23] MEDS: Ramipril 10 MG Capsule PO (22:03)
[2018-09-23] MEDS: RisperiDONE 2 MG Tablet PO (22:04)
[2018-09-23] MEDS: MELATONIN 10 MG TABLET PO (22:05)
[2018-09-23] MEDS: Atorvastatin Calcium 40 MG Tablet PO (22:05)
[2018-09-23] MEDS: Topiramate 100 MG Tablet PO (22:06)
[2018-09-23] MEDS: Montelukast 10 MG Tablet PO (22:06)
[2018-09-23] MEDS: ALPRAZolam 0.5 MG Tablet 1 MG PO (22:12)
--- NOTE | 2018-09-23 22:36 | NURSING ---
Pts boyfried came out to nurses station states pt really groggy. Wants to make sure shes ok. Pt easily arousable to verbal stim. States Just really tired. Prior to taking Xanax pt told nurse she often takes xanax with other bedtime meds. Pt also took last night with hs meds without issue. O2 sat 95% on RA, Resps 16, HR 80. Will continue to monitor.
[2018-09-24 02:58] VITALS: BP 111/55; PULSE 73; RESP 16; TEMP 36.9; O2SAT 96
[2018-09-24 03:01] VITALS: PULSE 72
--- NOTE | 2018-09-24 04:00 | EKG12_ITS ---
Test Reason : AM EKG Blood Pressure : / mmHG Vent. Rate : 076 BPM Atrial Rate : 076 BPM P-R Int : 188 ms QRS Dur : 098 ms QT Int : 396 ms P-R-T Axes : 048 020 036 degrees QTc Int : 445 ms Normal sinus rhythm Normal ECG When compared with ECG of 22-SEP-2018 15:20, MANUAL COMPARISON REQUIRED, DATA IS UNCONFIRMED Confirmed by GENE BRADLEY, FAYE ([id number]), digital editor GENNY ROLAND ([id number]) on 09/25/2018 5:30:47 PM Referred By: Osiel Quinones Confirmed By:FAYE MILLS MD
[2018-09-24 05:38] VITALS: BP 115/58; PULSE 82; RESP 16; TEMP 36.6; O2SAT 94
[2018-09-24] MEDS: 0.9% NaCl Peripheral Flush Adult/Peds IV (05:41)
[2018-09-24] MEDS: Clopidogrel Bisulfate 75 MG Tablet PO (05:51)
[2018-09-24 06:15] LABS: Bedside Glucose 91 mg/dL (70-110)
[2018-09-24 06:19] LABS: International Normalized Ratio 1.1; Prothrombin Time (Protime)PT. 14.3 SECONDS (11.7-14.9)
[2018-09-24 06:21] LABS: Partial Thromboplast Time 31.8 Seconds (24.1-36.2)
[2018-09-24 06:28] LABS: Anion Gap 10 (5-15); BUN 19 mg/dL (7-18); BUN/Creat Ratio 22.7 RATIO (10-20); Calcium,Total 8.8 mg/dL (8.5-10.1); Chloride 106 mmol/L (98-107); Creatinine, Serum 0.84 mg/dL (0.55-1.02); EST Glomerular Filtration Rate 74 mL/min (>60); Est Glom Filt Rate - Afr Amer 90 mL/min (>60); Estimated Creatinine Clearance 65.69 ml/min; Glucose 91 mg/dL (74-106); Potassium 3.3 mmol/L (3.5-5.1); Sodium Level 141 mmol/L (136-145)
[2018-09-24 06:33] LABS: Absolute Lymphocyte Count 2.56 X10^3/ul (0.83-4.51); Absolute Neutrophil Count 3.3 X10^3/uL (2.0-7.7); Basophil# 0.02 X10^3/uL; Basophil% 0.3 % (0-1); Eosinophil# 0.19 X10^3/uL; Eosinophils% 2.8 % (0-5); Hematocrit 36.6 % (37-47); Hemoglobin 11.9 g/dl (12.0-15.0); Lymphocyte # 2.56 X10^3/ul (4.0); Lymphocyte % 38.1 % (19-41); Mean Corp Hgb Conc 32.5 g/gl (32-36); Mean Corpuscular Hgb 29.2 pg (27.0-32.0); Mean Corpuscular Volume 89.9 fL (81-99); Mean Platelet Vol. 9.3 fl (6.2-12.0); Monocyte# 0.64 X10^3/uL; Monocyte% 9.5 % (0-10); Neutrophil % 49.2 % (47-70); Platelet Count 252 K/mm3 (150-450); RBC Distribution Width CV 14.3 % (11.6-14.6); RBC Distribution Width SD 46.5 fl (35.1-43.9); Red Blood Count 4.07 M/mm3 (4.2-5.4); White Blood Count 6.7 K/mm3 (4.4-11.0)
[2018-09-24 06:51] LABS: POSITIVE COUNT NO; POSITIVE DIFFERENTIAL NO; POSITIVE MORPHOLOGY NO
--- NOTE | 2018-09-24 08:15 | STRESSREP ---
Stress Test Report Pharmacologic myocardial perfusion stress test. 58-year-old lady with a history of solitary chest discomfort. Medications: Lipitor, Wellbutrin, Plavix, Lovenox, Lasix. Stress protocol: Resting EKG demonstrates normal sinus rhythm with a rate of 72 bpm normal intervals are noted resting blood pressure 128/74 mmHg. 0.4 mg of regadenoson was infused per usual protocol followed by rapid intravenous saline flush injection continuous EKG monitoring was performed. The maximum heart rate attained was 102 bpm which was 62% of maximum predicted heart rate the maximum workload was 1 metabolic equivalent. At rest there were no ST or T wave changes noted suggest abnormal flow reserve at peak infusion no ST or T wave changes were noted suggest abnormal flow reserve. The resting blood pressure was 128/74 final blood pressure was the same. Myocardial perfusion protocol. 14.2 mCi of technetium 99m sestamibi was injected at rest. 0.4 mg of regadenoson was infused per usual protocol peak infusion 44.1 mCi of technetium 99m sestamibi was injected stress images were obtained stress and rest images were reconstructed and compared in the short axis vertical long horizontal long axis. Gated images were also obtained Perfusion SPECT analysis: Review of the stress images demonstrate normal uptake of tracer noted in all areas of the myocardium. The resting images similarly demonstrate normal uptake of tracer noted in all areas of myocardium. No areas of reversibility are noted suggest ischemia no previous infarct is noted. Gated SPECT analysis: Gated ejection fraction is noted to be 88%. Conclusion: Normal pharmacologic myocardial perfusion stress test. Preserved ejection fraction.
--- NOTE | 2018-09-24 09:20 | PCM.DC ---
- Discharge Diagnoses Current Active Problems: Current Active and Chronic Problems (Last Reviewed 09/22/18 @ 16:57 by Osiel Quinones DO) Chest pain (Acute) You will use the following diet at home:: Cardiac Discharge Activity: Return to Normal Activity Instructions: ED Chest Pain NonCardiac Allergies/Adverse Reactions: Allergies No Known Allergies Allergy (Verified 09/22/18 15:15) Medications to take at Discharge ALPRAZolam [Xanax] 1 mg PO QHS PRN 06/22/17 Albuterol Aerosols [Ventolin Aerosols] 2.5 mg INHALATION Q4H PRN PRN 06/22/17 Albuterol IH (ProAir) [Proair Hfa] 1 puff INHALATION Q4H PRN PRN 06/22/17 Bupropion HCl [Wellbutrin Xl] 150 mg PO BID 06/22/17 Clopidogrel Bisulfate [Plavix] 75 mg PO DAILY 06/22/17 Docusate Sodium [Colace] 100 mg PO DAILY PRN PRN 06/22/17 Fluticasone 0.05% [Flonase Nasal [place]] 2 spray NASAL DAILY 06/22/17 Nitroglycerin 1 tab PO Q5M 06/22/17 Nystatin Powder [Mycostatin Powder] 1 applic TOPICAL BID 06/22/17 Atorvastatin Calcium [Lipitor] 40 mg PO QHS 09/13/17 Melatonin 10 mg PO QHS 09/13/17 Montelukast [Singulair] 10 mg PO QHS 09/13/17 furosemide 20 mg tablet 20 mg PO BID 12/27/17 mometasone-formoterol HFA 200 mcg-5 mcg/actuation aerosol inhaler 2 puff INHALATION BID 12/27/17 omeprazole 20 mg capsule,delayed release 40 mg PO DAILY cap 12/27/17 ramipril 10 mg capsule 10 mg PO QHS 12/27/17 Risperidone 1 mg PO DAILY 09/22/18 Risperidone 2 mg PO QHS 09/22/18 Topiramate 100 mg PO QHS 09/22/18 Primary Care Physician: Edvin West MD [Primary Care Provider] - Please follow up with your Primary Care Physician in: in 1 week Test Results: Test results from this visit will be discussed in further detail at your follow-up appointment, if applicable. Proposed Discharge Date: 09/24/18
--- NOTE | 2018-09-24 09:23 | PCM.DC.SUM ---
Discharge Date and Diagnosis - Problem List Patient Problems: Active and Suspected Problems (Last Reviewed 09/22/18 @ 16:57 by Osiel Quinones DO) Chest pain (Acute) Date of Admission: 09/22/18 Date of Discharge: 09/24/18 - Primary Discharge Diagnosis Active and Suspected Problems (Last Reviewed 09/22/18 @ 16:57 by Osiel Quinones DO) Chest pain (Acute) - Secondary Discharge Diagnosis Chronic Problems (Last Reviewed 09/22/18 @ 16:57 by Osiel Quinones DO) Diabetes mellitus (Chronic) Coronary artery disease (Chronic) Hyperlipidemia (Chronic) Anxiety disorder (Chronic) Depression (Chronic) Acute asthma exacerbation (Chronic) Asthma/COPD (Chronic) Hospital Course and Treatment Imaging Results: 09/24/18 05:55 Nuclear Stress Test - Chemical [NM] Routine Operations: None Summary of Care Provided: The patient is a 58 year old F admitted with chest pain 1. Chest pain: Patient was placed on a monitored bed CA was ruled out with serial cardiac enzymes. Patient underwent a nuclear stress test which was negative for stress-induced ischemia 2. CAD with previous stent placement 3. Restrictive lung disease stable 4. GERD 5. Depression with anxiety 6. DVT: Lovenox Patient Problems: Active and Suspected Problems (Last Reviewed 09/22/18 @ 16:57 by Osiel Quinones DO) Chest pain (Acute) - Physical Exam General: Oriented x3 HEENT: Atraumatic Lungs: Diminished Cardiovascular: Regular rate, Regular Rhythm Neurological: Neuro grossly intact Vital Signs Temp Pulse Resp BP Pulse Ox 97.9 F 82 16 115/58 L 94 09/24/18 05:38 09/24/18 05:38 09/24/18 05:38 09/24/18 05:38 09/24/18 05:38 Oxygen Flow Rate (L/min) 2 Oxygen Delivery Method Room Air Weight: 93.6 kg Body Mass Index (BMI) 34.3 Intake and Output for Last 24 Hours 09/22/18 09/23/18 09/24/18 23:59 23:59 23:59 Intake Total 420 / 420 30 / 30 300 / 300 Balance 420 / 420 30 / 30 300 / 300 Laboratory Tests Past 24 Hrs 09/24/18 09/24/18 09/24/18 04:38 04:38 04:38 WBC 6.7 RBC 4.07 L Hgb 11.9 L Hct 36.6 L MCV 89.9 MCH 29.2 MCHC 32.5 RDW 14.3 RDW Differential 46.5 H Plt Count 252 MPV 9.3 Immature Gran % (Auto) 0.100 Neut % (Auto) 49.2 Lymph % (Auto) 38.1 [place] % (Auto) 9.5 Eos % (Auto) 2.8 Baso % (Auto) 0.3 Absolute Neuts (auto) 3.3 Absolute Lymphs (auto) 2.56 Total Counted Not Reportable PT 14.3 INR 1.1 APTT 31.8 Sodium 141 Potassium 3.3 L Chloride 106 Carbon Dioxide 25.0 Anion Gap 10 BUN 19 H Creatinine 0.84 Estim Creat Clear Calc 65.69 Est GFR (MDRD) Af Amer 90 Est GFR (MDRD) Non-Af 74 BUN/Creatinine Ratio 22.7 H Glucose 91 Calcium 8.8 POC Glucose 09/24/18 05:45 POC Glucose 91 Discharge Diet: Low fat/ Low Cholesterol Discharge Activity: Return to Normal Activity Home Medications: Medications to take at Discharge ALPRAZolam [Xanax] 1 mg PO QHS PRN 06/22/17 Albuterol Aerosols [Ventolin Aerosols] 2.5 mg INHALATION Q4H PRN PRN 06/22/17 Albuterol IH (ProAir) [Proair Hfa] 1 puff INHALATION Q4H PRN PRN 06/22/17 Bupropion HCl [Wellbutrin Xl] 150 mg PO BID 06/22/17 Clopidogrel Bisulfate [Plavix] 75 mg PO DAILY 06/22/17 Docusate Sodium [Colace] 100 mg PO DAILY PRN PRN 06/22/17 Fluticasone 0.05% [Flonase Nasal [place]] 2 spray NASAL DAILY 06/22/17 Nitroglycerin 1 tab PO Q5M 06/22/17 Nystatin Powder [Mycostatin Powder] 1 applic TOPICAL BID 06/22/17 Atorvastatin Calcium [Lipitor] 40 mg PO QHS 09/13/17 Melatonin 10 mg PO QHS 09/13/17 Montelukast [Singulair] 10 mg PO QHS 09/13/17 furosemide 20 mg tablet 20 mg PO BID 12/27/17 mometasone-formoterol HFA 200 mcg-5 mcg/actuation aerosol inhaler 2 puff INHALATION BID 12/27/17 omeprazole 20 mg capsule,delayed release 40 mg PO DAILY cap 12/27/17 ramipril 10 mg capsule 10 mg PO QHS 12/27/17 Risperidone 1 mg PO DAILY 09/22/18 Risperidone 2 mg PO QHS 09/22/18 Topiramate 100 mg PO QHS 09/22/18 Primary Care Physician: Edvin West MD [Primary Care Provider] - Please follow up with your Primary Care Physician in: in 1 week Patient Instructions: ED Chest Pain NonCardiac Disposition: Home Minutes spent on discharge:: 35 Medical Necessity - Tobacco Use Smoking Status: Former smoker Meaningful Use Info Meaningful Use Diagnoses (Choose all that apply): None applicable Code Visit OBSV E&M: 43772 Observation care discharge
--- NOTE | 2018-09-24 09:26 | DS.PCM_ITS ---
Discharge Date and Diagnosis - Problem List Patient Problems: Active and Suspected Problems (Last Reviewed 09/22/18 @ 16:57 by Osiel Quinones DO) Chest pain (Acute) Date of Admission: 09/22/18 Date of Discharge: 09/24/18 - Primary Discharge Diagnosis Active and Suspected Problems (Last Reviewed 09/22/18 @ 16:57 by Osiel Quinones DO) Chest pain (Acute) - Secondary Discharge Diagnosis Chronic Problems (Last Reviewed 09/22/18 @ 16:57 by Osiel Quinones DO) Diabetes mellitus (Chronic) Coronary artery disease (Chronic) Hyperlipidemia (Chronic) Anxiety disorder (Chronic) Depression (Chronic) Acute asthma exacerbation (Chronic) Asthma/COPD (Chronic) Hospital Course and Treatment Imaging Results: 09/24/18 05:55 Nuclear Stress Test - Chemical [NM] Routine Operations: None Summary of Care Provided: The patient is a 58 year old F admitted with chest pain 1. Chest pain: Patient was placed on a monitored bed CO was ruled out with serial cardiac enzymes. Patient underwent a nuclear stress test which was negative for stress-induced ischemia 2. CAD with previous stent placement 3. Restrictive lung disease stable 4. GERD 5. Depression with anxiety 6. DVT: Lovenox Patient Problems: Active and Suspected Problems (Last Reviewed 09/22/18 @ 16:57 by Osiel Quinones DO) Chest pain (Acute) - Physical Exam General: Oriented x3 HEENT: Atraumatic Lungs: Diminished Cardiovascular: Regular rate, Regular Rhythm Neurological: Neuro grossly intact Vital Signs Temp Pulse Resp BP Pulse Ox 97.9 F 82 16 115/58 L 94 09/24/18 05:38 09/24/18 05:38 09/24/18 05:38 09/24/18 05:38 09/24/18 05:38 Oxygen Flow Rate (L/min) 2 Oxygen Delivery Method Room Air Weight: 93.6 kg Body Mass Index (BMI) 34.3 Intake and Output for Last 24 Hours 09/22/18 09/23/18 09/24/18 23:59 23:59 23:59 Intake Total 420 / 420 30 / 30 300 / 300 Balance 420 / 420 30 / 30 300 / 300 Laboratory Tests Past 24 Hrs 09/24/18 09/24/18 09/24/18 04:38 04:38 04:38 WBC 6.7 RBC 4.07 L Hgb 11.9 L Hct 36.6 L MCV 89.9 MCH 29.2 MCHC 32.5 RDW 14.3 RDW Differential 46.5 H Plt Count 252 MPV 9.3 Immature Gran % (Auto) 0.100 Neut % (Auto) 49.2 Lymph % (Auto) 38.1 [place] % (Auto) 9.5 Eos % (Auto) 2.8 Baso % (Auto) 0.3 Absolute Neuts (auto) 3.3 Absolute Lymphs (auto) 2.56 Total Counted Not Reportable PT 14.3 INR 1.1 APTT 31.8 Sodium 141 Potassium 3.3 L Chloride 106 Carbon Dioxide 25.0 Anion Gap 10 BUN 19 H Creatinine 0.84 Estim Creat Clear Calc 65.69 Est GFR (MDRD) Af Amer 90 Est GFR (MDRD) Non-Af 74 BUN/Creatinine Ratio 22.7 H Glucose 91 Calcium 8.8 POC Glucose 09/24/18 05:45 POC Glucose 91 Discharge Diet: Low fat/ Low Cholesterol Discharge Activity: Return to Normal Activity Home Medications: Medications to take at Discharge ALPRAZolam [Xanax] 1 mg PO QHS PRN 06/22/17 Albuterol Aerosols [Ventolin Aerosols] 2.5 mg INHALATION Q4H PRN PRN 06/22/17 Albuterol IH (ProAir) [Proair Hfa] 1 puff INHALATION Q4H PRN PRN 06/22/17 Bupropion HCl [Wellbutrin Xl] 150 mg PO BID 06/22/17 Clopidogrel Bisulfate [Plavix] 75 mg PO DAILY 06/22/17 Docusate Sodium [Colace] 100 mg PO DAILY PRN PRN 06/22/17 Fluticasone 0.05% [Flonase Nasal [place]] 2 spray NASAL DAILY 06/22/17 Nitroglycerin 1 tab PO Q5M 06/22/17 Nystatin Powder [Mycostatin Powder] 1 applic TOPICAL BID 06/22/17 Atorvastatin Calcium [Lipitor] 40 mg PO QHS 09/13/17 Melatonin 10 mg PO QHS 09/13/17 Montelukast [Singulair] 10 mg PO QHS 09/13/17 furosemide 20 mg tablet 20 mg PO BID 12/27/17 mometasone-formoterol HFA 200 mcg-5 mcg/actuation aerosol inhaler 2 puff I NHALATION BID 12/27/17 omeprazole 20 mg capsule,delayed release 40 mg PO DAILY cap 12/27/17 ramipril 10 mg capsule 10 mg PO QHS 12/27/17 Risperidone 1 mg PO DAILY 09/22/18 Risperidone 2 mg PO QHS 09/22/18 Topiramate 100 mg PO QHS 09/22/18 Primary Care Physician: Edvin West MD [Primary Care Provider] - Please follow up with your Primary Care Physician in: in 1 week Patient Instructions: ED Chest Pain NonCardiac Disposition: Home Minutes spent on discharge:: 35 Medical Necessity - Tobacco Use Smoking Status: Former smoker Meaningful Use Info Meaningful Use Diagnoses (Choose all that apply): None applicable Code Visit OBSV E&M: 02111 Observation care discharge
[2018-09-24 09:42] VITALS: BP 130/66; PULSE 96; RESP 14; TEMP 36.6; O2SAT 97
--- NOTE | 2018-09-24 10:20 | CASEMGMT ---
This RN CM to room with RECINOS form, explanation done, pt voices understanding and signs RECINOS form at this time. Pt voices no further questions/concerns/needs at this time. Original RECINOS to chart and copy to pt at this time. SStvick RAMOS CM
== END 2018-09-24 09:21 | disposition home or self-care (01) ==
LOC: ED 15:59 → PCU 17:22
PROVIDERS: Family Medicine; Emergency Provider Emergency Medicine; Family Provider Family Medicine; PCP Family Medicine; Visit Provider Internal Medicine
DX: R07.89 Other chest pain (principal); I25.10 Atherosclerotic heart disease of native coronary artery without angina pectoris; E11.9 Type 2 diabetes mellitus without complications; I10 Essential (primary) hypertension; R00.0 Tachycardia, unspecified; I25.2 Old myocardial infarction; F41.9 Anxiety disorder, unspecified; F32.9 Major depressive disorder, single episode, unspecified; J44.9 Chronic obstructive pulmonary disease, unspecified; Z87.891 Personal history of nicotine dependence; Z79.02 Long term (current) use of antithrombotics/antiplatelets; Z79.899 Other long term (current) drug therapy; E78.5 Hyperlipidemia, unspecified; K21.9 Gastro-esophageal reflux disease without esophagitis
CPT/HCPCS: 36415; 71045; 78452; 80048; 80061; 82962; 84484; 85025; 85379; 85610; 85730; 93005; 93017; 94640; 96372; 97802; 99218; 99283; A9500; A4216; G0378; J2785

== ENCOUNTER 2020-11-21 09:11 | Outpatient (RCR) | payer MEDICARE, SELFPAY ==
[2020-11-18 10:25] VITALS: BMI 36.1
[2020-11-19] MEDS: COVID-19 VACC, MRNA(PFIZER)/PF 30 MCG/0.3 ML SYRINGE IM (12:12)
[2020-12-10] MEDS: COVID-19 VACC, MRNA(PFIZER)/PF 30 MCG/0.3 ML SYRINGE IM (12:11)
== END 2021-02-16 23:59 ==
LOC: IMMUN 09:11
PROVIDERS: PCP Family Medicine; Visit Provider Family Medicine
DX: Z23 Encounter for immunization (principal)
CPT/HCPCS: 0001A; 0002A; 91300

== ENCOUNTER 2022-10-15 13:26 | Emergency (ER) | payer MEDICARE, SELFPAY ==
[2022-10-15 13:27] VITALS: BP 158/78; PULSE 91; RESP 14; TEMP 36.1; O2SAT 99; BMI 39.1
--- NOTE | 2022-10-15 14:41 | US_ITS ---
INDICATION: PAIN/n/v -- epigastric pain x 1 day EXAMINATION: Ultrasound US Abdomen RUQ (limited) TECHNIQUE: Maria-scale and color Doppler imaging was performed of the abdomen. COMPARISON: None. FINDINGS: LIVER: There is fatty echotexture measuring 21.4 cm. No focal hepatic lesion. No intrahepatic biliary ductal dilatation. There is no free fluid. GALLBLADDER AND BILIARY TREE: There is cholelithiasis. No pericholecystic fluid. Borderline gallbladder wall thickening is demonstrated. The proximal common bile duct measures 5 mm, which is within normal limits for the patient''s age. SONOGRAPHIC BRONSON''S SIGN: Negative. PANCREAS: No focal abnormality is demonstrated in the pancreas. No pancreatic ductal dilatation. Limited visualization of the pancreatic tail. RIGHT KIDNEY: 12.2 x 5.1 x 3.8 cm. The cortex is 12 mm. There is no hydronephrosis. No shadowing calculus, focal lesion, or perinephric collection is demonstrated. VESSELS: Submitted longitudinal images of the intra-abdominal aorta demonstrate no gross abnormalities and are unremarkable. The IVC is patent. US/Gallbladder IMPRESSION: Enlarged fatty liver. Cholelithiasis. Electronically Signed: Reinier Gonzalez DO at 17:06 EST Reading Location ID and State: [facility] / [place] Tel [phone], Service support ,
--- NOTE | 2022-10-15 14:42 | ED.VIS.GI ---
HPI HPI - GI History of Present Illness Chief Complaint: Abd Pain Informant: patient Abdominal Pain/Flank Pain Onset: Hours (Several) Context: Gradual Onset (While lying down resting) Timing: Continuous Quality: Aching Location: - (Across upper abdomen and wrapping around back at same level) Current Severity: 8/10 Maximum Severity: 8/10 Worsened by: Nothing Relieved by: Nothing Nausea/Vomiting/Emesis GI Symptom: Positive for Nausea and Vomiting Onset: Today Quality: Positive for Nonbilious; Negative for Blood streaks Episodes: 1 Diarrhea/Melena/Hematochezia GI Symptom: Negative for Diarrhea, Melena or Hematochezia Associated Symptoms Associated Symptoms: Negative for Dysuria, Frequency or Hematuria Narrative Narrative: Patient started having abdominal pain several hours ago, states that she has had this once before but it was a long time ago. This was not right after a meal, she presents here around 1430 for evaluation, she states last meal she had was breakfast and egg sandwich. She has had vomiting with this. Pain radiates around to her back at the same level but not her shoulders. She denies any dyspnea or chest symptoms. She has a prior gastric bypass but no other abdominal surgeries, she has not had a prior cholecystectomy. She is on clopidogrel because of cardiac stents no anticoagulants. Denies any recent fevers or chills or bleeding. [facility] Medical History Acute asthma exacerbation Anxiety disorder Asthma/COPD Chills with fever Coronary artery disease Depression Diabetes mellitus Hyperlipidemia Pneumonia Productive cough Home Medications albuterol sulfate 2.5 mg/3 mL (0.083 %) solution for nebulization 2.5 mg inhalation Q4H PRN PRN Sob &/Or Wheezing 06/22/17 [History Last Taken 09/13/17 16:00] albuterol sulfate 90 mcg/actuation aerosol inhaler 1 puff inhalation Q4H PRN PRN Shortness Of Breath 06/22/17 [History Last Taken 09/13/17 16:00] alprazolam 1 mg tablet 1 mg PO QHS PRN Anxiety 06/22/17 [History Last Taken 09/01/17 22:00 1 MG] bupropion HCl 300 mg 24 hr tablet, extended release 150 mg PO BID DEPRESSION 06/22/17 [History Last Taken 09/22/18 08:00] clopidogrel 75 mg tablet 75 mg PO DAILY BLOOD THINNER 06/22/17 [History Last Taken 09/22/18 08:00 75 MG] docusate sodium 100 mg capsule 100 mg PO DAILY PRN PRN Constipation 06/22/17 [History Last Taken 09/21/18 08:00] fluticasone propionate 50 mcg/actuation nasal spray,suspension 2 spray NASAL DAILY SINUS 06/22/17 [History Last Taken 09/22/18 08:00] nitroglycerin 0.4 mg sublingual tablet 1 tab PO Q5M CHEST PAIN 06/22/17 [History Last Taken 09/22/18 18:00] nystatin 100,000 unit/gram topical powder 1 applic topical BID REDNESS 06/22/17 [History Last Taken 09/20/18 08:00] atorvastatin 40 mg tablet 40 mg PO QHS CHOLESTEROL 09/13/17 [History Last Taken 09/21/18 22:00 40 MG] melatonin 10 mg capsule 10 mg PO QHS SLEEP 09/13/17 [History Last Taken 09/21/18 22:00 10 MG] montelukast 10 mg tablet 10 mg PO QHS ALLERGY 09/13/17 [History Last Taken 09/21/18 22:00 10 MG] furosemide 20 mg tablet (Lasix) 20 mg PO BID water pill 12/27/17 [History Last Taken 09/22/18 08:00] mometasone-formoterol HFA 200 mcg-5 mcg/actuation aerosol inhaler (Dulera) 2 puff inhalation BID SOB 12/27/17 [History Last Taken Unknown] omeprazole 20 mg capsule,delayed release 40 mg PO DAILY ACID REFLUX 12/27/17 [History Last Taken 09/22/18 08:00] ramipril 10 mg capsule (Altace) 10 mg PO QHS heart health 12/27/17 [History Last Taken 09/21/18 22:00] risperidone 1 mg tablet 1 mg PO DAILY schizophrenia 09/22/18 [History Last Taken 09/22/18 08:00] risperidone 1 mg tablet 2 mg PO QHS schizophrenia 09/22/18 [History Last Taken 09/21/18 22:00] topiramate 100 mg tablet 100 mg PO QHS seizures 09/22/18 [History Last Taken 09/21/18 22:00] Allergy/AdvReac Type Severity Reaction Status Date / Time No Known Allergies Allergy Verified 10/15/22 13:27 Family History Mother Diabetes Hypertension Father Cancer Surgical History H/O section H/O colonoscopy H/O gastric bypass H/O heart artery stent Social History Smoking Status: Former smoker alcohol intake: never ROS ROS ED Constitutional Constitutional ED: Denies chills or fever(s) Eyes Eyes: Denies change in vision or diplopia ENT ENT ED: Denies rhinorrhea or sore throat Cardiovascular Cardiovascular: Denies chest pain or palpitations Respiratory/Chest Respiratory/Chest: Denies cough or dyspnea Gastrointestinal Gastrointestinal: Reports abdominal pain, nausea and vomiting; Denies diarrhea Genitourinary Genitourinary ED: Denies dysuria or hematuria Musculoskeletal Musculoskeletal: Reports back pain; Denies neck pain Integumentary Denies abscess or rash Neurologic Neurologic: Denies headache(s), paresthesias or weakness Psychiatric Psychiatric: Denies anxiety or suicidal thoughts EXAM Physical Exam Const Vital Signs: 10/15/22 13:27 Temperature 97 F L Temperature Source Temporal Pulse Rate 91 Respiratory Rate 14 Blood Pressure 158/78 H Blood Pressure Mean 104 Pulse Ox 99 Oxygen Delivery Method Room Air Positive well nourished, well developed and obese General Appearance ED: well developed and NAD Nutritional Appearance: obese HEENT Reports moist mucous membranes normocephalic and atraumatic Eyes PERRL and EOMs intact bilaterally Neck full ROM and supple Resp normal respiratory effort and clear to auscultation bilaterally Cardio regular rate, regular rhythm and no murmurs GI non-distended GI Narrative: Exam somewhat limited by obesity, but patient has tenderness in the right upper quadrant, no guarding or rebound tenderness. No other areas of tenderness. Auscultation: normoactive bowel sounds Palpation: soft Back/Spine no CVA tenderness General Back: other FROM Extremity normal to inspection General Extremety ED: Negative for edema, pulses abnormal or tenderness General Extremity: Negative for edema or pulses abnormal Neuro oriented x3, CN's II-XII intact bilaterally and no sensory deficits noted Sensorium / Orientation: awake and alert Motor Exam: strength 5/5 throughout Skin no rashes or lesions noted and no wounds MDM MDM MDM Narrative Medical decision making narrative: Patient's labs were reviewed. She does not have a leukocytosis but she does have an elevated bilirubin and elevated liver enzymes. Ultrasound of her gallbladder was obtained suspicious for biliary colic here, shows cholelithiasis, gallbladder wall thickening is borderline, the common bile duct is within the upper limits of normal. However given her labs, my suspicion is that she may have biliary obstruction, may be related to a stone given that she does have stones present. Treated her symptoms with IV fluids, morphine, Zofran on reevaluation she is feeling much better and not tender. Discussed with surgery Dr. Hebert, who came to evaluate the patient in the emergency department. He was prepared to do an ERCP, however the patient had a gastric bypass which complicates that. In addition to that, we do not have interventional radiology available on the weekend right now, so she is not able to get a biliary tube/drain at this facility this weekend either. She also is wearing a heart monitor that she states comes off tomorrow because she has been having intermittent pain in her chest and left arm that has not been present today, along with a history of CAD and a history of 7 stents in the past. She is seeing a sustainability director in [place] with [facility]. Given all of this, she will require transfer and I think transferring her to a [facility] facility would be most appropriate. Discussed with [facility], they do have hepatobiliary capability and the capacity to accept this patient, accepted there by Dr. Emery. In considering early cholecystitis, we did treat the patient with a dose of Zosyn here. She is doing well clinically and hemodynamically. Lab Data Attestation: I reviewed the patient's lab results. Labs: Laboratory Results - last 24 hr 10/15/22 10/15/22 10/15/22 15:05 15:05 15:10 WBC 8.5 RBC 4.45 Hgb 13.7 Hct 41.1 MCV 92.4 MCH 30.8 MCHC 33.3 RDW Std Deviation 46.6 H RDW Coeff of Jose 13.7 Plt Count 232 MPV 8.9 Immature Gran % (Auto) 0.200 Neut % (Auto) 82.3 H Lymph % (Auto) 13.1 L [place] % (Auto) 3.4 Eos % (Auto) 0.6 Baso % (Auto) 0.4 Absolute Neuts (auto) 7.0 Absolute Lymphs (auto) 1.11 Nucleated RBC % 0 Sodium 140 Potassium 4.0 Chloride 106 Carbon Dioxide 25.0 Anion Gap 9 BUN 15 Creatinine 1.18 H Estim Creat Clear Calc 44.48 Est GFR (MDRD) Af Amer 60 Est GFR (MDRD) Non-Af 49 L BUN/Creatinine Ratio 12.7 Glucose 134 H Calcium 8.9 Total Bilirubin 1.80 H AST 449 H ALT 240 H Alkaline Phosphatase 165 H Total Protein 7.2 Albumin 3.5 Globulin 3.7 Albumin/Globulin Ratio 0.9 Lipase 275 Urine Color Yellow Urine Clarity Clear Urine pH 6.0 Ur Specific [place] 1.020 Urine Protein Negative Urine Glucose (UA) Normal Urine Ketones Negative Urine Occult Blood Negative Urine Nitrite Negative Urine Bilirubin Negative Urine Urobilinogen 4 H Ur Leukocyte Esterase 25 H Urine RBC 0 SEEN Urine WBC 0 SEEN Ur Squamous Epith Cells 0-5 SEEN Urine Bacteria RARE Urine Mucus 0 SEEN Radiography Diagnostic Testing: Clinical Impression(s) from Imaging Studies Gallbladder Ultrasound 10/15/22 14:41 IMPRESSION: Enlarged fatty liver. Cholelithiasis. Electronically Signed: Reinier Gonzalez DO at 17:06 EST Reading Location ID and State: [facility] / [place] Tel [phone], Service support , Discharge Plan Triage Chief Complaint: Abd Pain ED Provider: Ifeanyi Combs Dx/Rx/DC Orders Clinical Impression: Cholelithiasis with biliary obstruction, Elevated liver enzymes, Acute cholecystitis due to biliary calculus Prescriptions: No Action furosemide [Lasix] 20 mg tablet 20 mg PO BID ramipril [Altace] 10 mg capsule 10 mg PO QHS mometasone-formoterol [Dulera] 200-5 mcg/actuation HFA aerosol inhaler 2 puff INHALATION BID albuterol sulfate 2.5 MG/3 ML solution for nebulization 2.5 mg INHALATION Q4H PRN PRN (Reason: Sob &/Or Wheezing) nitroglycerin 0.4 MG tablet, sublingual 1 tab PO Q5M nystatin 1 APPLIC bottle 1 applic TOPICAL BID fluticasone propionate 1 SPRAY spray,suspension 2 spray NASAL DAILY alprazolam 1 MG tablet 1 mg PO QHS PRN (Reason: Anxiety) clopidogrel 75 MG tablet 75 mg PO DAILY docusate sodium 100 MG capsule 100 mg PO DAILY PRN PRN (Reason: Constipation) albuterol sulfate 1 PUFF inhaler 1 puff INHALATION Q4H PRN PRN (Reason: Shortness Of Breath) bupropion HCl 300 MG tablet extended release 24 hr 150 mg PO BID omeprazole 20 mg capsule,delayed release(DR/EC) 40 mg PO DAILY montelukast 10 MG tablet 10 mg PO QHS melatonin 10 MG capsule 10 mg PO QHS atorvastatin 40 MG tablet 40 mg PO QHS topiramate 100 MG tablet 100 mg PO QHS risperidone 1 MG tablet 1 mg PO DAILY risperidone 1 MG tablet 2 mg PO QHS Primary Care Provider: Edvin West Referrals: Edvin West MD [Primary Care Provider] - Disposition Disposition: Acute Care Hospital Discharge Location: [facility]
[2022-10-15] MEDS: Ondansetron 4 MG/2 ML Vial IV (14:58)
[2022-10-15] MEDS: Morphine 4 MG/ML Syringe IV (14:58)
[2022-10-15 15:14] LABS: Absolute Lymphocyte Count 1.11 X10^3/uL (0.83-4.51); Basophil# 0.03 X10^3/uL; Basophil% 0.4 % (0-1); Eosinophil# 0.05 X10^3/uL; Eosinophils% 0.6 % (0-5); Hematocrit 41.1 % (37-47); Hemoglobin 13.7 g/dL (12.0-15.0); Lymphocyte # 1.11 X10^3/ul (0.83-4.51); Lymphocyte % 13.1 % (19-41); Mean Corp Hgb Conc 33.3 g/dL (32-36); Mean Corpuscular Hgb 30.8 pg (27.0-32.0); Mean Corpuscular Volume 92.4 fL (81-99); Mean Platelet Vol. 8.9 fl (6.2-12.0); Monocyte# 0.29 X10^3/uL; Monocyte% 3.4 % (0-10); NRBC Flagged by Analyzer 0 % (0-5); Neutrophil # 6.95 X10^3/uL (2.7-7.7); Neutrophil % 82.3 % (47-70); Platelet Count 232 K/mm3 (150-450); RBC Distribution Width CV 13.7 % (11.6-14.6); RBC Distribution Width SD 46.6 fl (35.1-43.9); Red Blood Count 4.45 M/mm3 (4.2-5.4); White Blood Count 8.5 K/mm3 (4.4-11.0)
[2022-10-15 15:17] LABS: Mucous, Urine 0 SEEN /hpf (<or=2+); Red Blood Cells-Urine 0 SEEN /hpf (0-5); White Blood Cells 0 SEEN /hpf (0-5)
[2022-10-15 15:52] LABS: ALB/GLOB Ratio 0.9 RATIO (0.9-2.4); AST(SGOT) 449 U/L (15-37); Alanine Aminotransfer ALT/SGPT 240 U/L (13-56); Albumin, Serum 3.5 g/dL (3.2-5.0); Alkaline Phosphatase 165 U/L (45-117); Anion Gap 9 (5-15); BUN 15 mg/dL (7-18); BUN/Creat Ratio 12.7 RATIO (10-20); Calcium,Total 8.9 mg/dL (8.5-10.1); Chloride 106 mmol/L (98-107); Creatinine, Serum 1.18 mg/dL (0.55-1.02); EST Glomerular Filtration Rate 49 mL/min (>60); Est Glom Filt Rate - Afr Amer 60 mL/min (>60); Estimated Creatinine Clearance 44.48 ml/min; Globulin 3.7 g/dL (2.2-4.2); Glucose 134 mg/dL (74-106); Lipase 275 U/L (73-393); Protein, Total 7.2 g/dL (6.4-8.2); Sodium Level 140 mmol/L (136-145)
[2022-10-15 16:00] VITALS: RESP 18
[2022-10-15 16:26] LABS: Glucose, Dipstick Normal (Normal); Ketone-Dipstick Negative (Negative); Leukocyte Esterase-Dipstick 25 /ul (Negative); Nitrite-Dipstick Negative (Negative); Occult Blood-Urine Negative /ul (Negative); Protein-Dipstick Negative (Negative); Urine Bilirubin Dipstick Negative (Negative); Urine Urobilinogen 4 mg/dl (Normal)
[2022-10-15 16:28] LABS: Color, Urine Yellow (Yellow); Urine Clarity Clear (Clear)
[2022-10-15 16:32] LABS: Bacteria RARE /hpf (None Seen); Squamous Epithelial Cells - UA 0-5 SEEN /hpf (5-10)
[2022-10-15 18:00] VITALS: RESP 18
[2022-10-15] MEDS: 0.9% Normal Saline 1,000 ML 125 ML IV (18:39)
--- NOTE | 2022-10-15 19:29 | CON.PCM.SX_ITS ---
Assessment & Plan Assessment/Plan (1) Cholelithiasis with biliary obstruction: PLAN: Patient has ultrasound shows cholelithiasis. She also has elevated liver enzymes. She likely has obstructive jaundice due to cholelithiasis. Unfortun ately she does have a history of gastric bypass. With a history of gastric bypass I am unable to complete an ERCP. I would recommend the patient be transferred to tertiary center where they would be able to perform common duct exploration. At the very least the patient needs percutaneous cholecystostomy tube for decompression of the biliary tree which we are also unable to complete as it is a weekend. Discussed with the ER physician. Jairo Hebert MD Pager: [facility] [address] [place] [address], [address] [place] [address] Office: HPI Consult Data Date of Consult: 10/15/22 HPI Narrative HPI Narrative: NIGHAT JARRETT, is a 62 F who presents with abdominal pain that started earlier today. Patient reports abdominal pain radiates over her upper abdomen. She is also having chills. [facility] Medical History Acute asthma exacerbation Anxiety disorder Asthma/COPD Chills with fever Coronary artery disease Depression Diabetes mellitus Hyperlipidemia Pneumonia Productive cough Home Medications albuterol sulfate 2.5 mg/3 mL (0.083 %) solution for nebulization 2.5 mg inhalation Q4H PRN PRN Sob &/Or Wheezing 06/22/17 [History Last Taken 09/13/17 16:00] albuterol sulfate 90 mcg/actuation aerosol inhaler 1 puff inhalation Q4H PRN PRN Shortness Of Breath 06/22/17 [History Last Taken 09/13/17 16:00] alprazolam 1 mg tablet 1 mg PO QHS PRN Anxiety 06/22/17 [History Last Taken 09/01/17 22:00 1 MG] bupropion HCl 300 mg 24 hr tablet, extended release 150 mg PO BID DEPRESSION 06/22/17 [History Last Taken 09/22/18 08:00] clopidogrel 75 mg tablet 75 mg PO DAILY BLOOD THINNER 06/22/17 [History Last Taken 09/22/18 08:00 75 MG] docusate sodium 100 mg capsule 100 mg PO DAILY PRN PRN Constipation 06/22/17 [History Last Taken 09/21/18 08:00] fluticasone propionate 50 mcg/actuation nasal spray,suspension 2 spray NASAL DAILY SINUS 06/22/17 [History Last Taken 09/22/18 08:00] nitroglycerin 0.4 mg sublingual tablet 1 tab PO Q5M CHEST PAIN 06/22/17 [History Last Taken 09/22/18 18:00] nystatin 100,000 unit/gram topical powder 1 applic topical BID REDNESS 06/22/17 [History Last Taken 09/20/18 08:00] atorvastatin 40 mg tablet 40 mg PO QHS CHOLESTEROL 09/13/17 [History Last Taken 09/21/18 22:00 40 MG] melatonin 10 mg capsule 10 mg PO QHS SLEEP 09/13/17 [History Last Taken 09/21/18 22:00 10 MG] montelukast 10 mg tablet 10 mg PO QHS ALLERGY 09/13/17 [History Last Taken 09/21/18 22:00 10 MG] furosemide 20 mg tablet (Lasix) 20 mg PO BID water pill 12/27/17 [History Last Taken 09/22/18 08:00] mometasone-formoterol HFA 200 mcg-5 mcg/actuation aerosol inhaler (Dulera) 2 puff inhalation BID SOB 12/27/17 [History Last Taken Unknown] omeprazole 20 mg capsule,delayed release 40 mg PO DAILY ACID REFLUX 12/27/17 [History Last Taken 09/22/18 08:00] ramipril 10 mg capsule (Altace) 10 mg PO QHS heart health 12/27/17 [History Last Taken 09/21/18 22:00] risperidone 1 mg tablet 1 mg PO DAILY schizophrenia 09/22/18 [History Last Taken 09/22/18 08:00] risperidone 1 mg tablet 2 mg PO QHS schizophrenia 09/22/18 [History Last Taken 09/21/18 22:00] topiramate 100 mg tablet 100 mg PO QHS seizures 09/22/18 [History Last Taken 09/21/18 22:00] Allergy/AdvReac Type Severity Reaction Status Date / Time No Known Allergies Allergy Verified 10/15/22 13:27 Family History Mother Diabetes Hypertension Father Cancer Surgical History H/O section H/O colonoscopy H/O gastric bypass H/O heart artery stent Social History Smoking Status: Former smoker alcohol intake: never ROS Constitutional Constitutional: Reports chills; Denies anorexia, fatigue or fever(s) Eyes Eyes: Denies change in vision ENT HEENT: Denies abnormal hearing Cardiovascular Cardiovascular: Reports chest pain Respiratory/Chest Respiratory/Chest: Denies cough or dyspnea Gastrointestinal Gastrointestinal: Reports abdominal pain; Denies constipation or diarrhea Genitourinary Genitourinary: Denies change in urinary stream or difficulty urinating Musculoskeletal Musculoskeletal: Denies difficulty walking Integumentary Integumentary: Denies new lesions Neurologic Neurologic: Denies abnormal gait Physical Exam Const alert and oriented x3 HEENT normocephalic Eyes PERRL Resp normal respiratory effort Cardio Rate: regular rate Rhythm: regular rhythm GI soft to palpation Inspection: Negative for abdominal distention Palpation: tender epigastric Lab / Micro Data Result Diagrams: 10/15/22 15:05 10/15/22 15:05 Labs: Laboratory Results - last 24 hr 10/15/22 15:05: WBC 8.5, RBC 4.45, Hgb 13.7, Hct 41.1, MCV 92.4, MCH 30.8, MCHC 33.3, RDW Std Deviation 46.6 H, RDW Coeff of Jose 13.7, Plt Count 232, MPV 8.9, Immature Gran % (Auto) 0.200, Neut % (Auto) 82.3 H, Lymph % (Auto) 13.1 L, [place] % (Auto) 3.4, Eos % (Auto) 0.6, Baso % (Auto) 0.4, Absolute Neuts (auto) 7.0, Absolute Lymphs (auto) 1.11, Nucleated RBC % 0 10/15/22 15:05: Sodium 140, Potassium 4.0, Chloride 106, Carbon Dioxide 25.0, An ion Gap 9, BUN 15, Creatinine 1.18 H, Estim Creat Clear Calc 44.48, Est GFR ( MDRD) Af Amer 60, Est GFR (MDRD) Non-Af 49 L, BUN/Creatinine Ratio 12.7, Glucose 134 H, Calcium 8.9, Total Bilirubin 1.80 H, AST 449 H, ALT 240 H, Alkaline Phosphatase 165 H, Total Protein 7.2, Albumin 3.5, Globulin 3.7, Albumin/Globulin Ratio 0.9, Lipase 275 10/15/22 15:10: Urine Color Yellow, Urine Clarity Clear, Urine pH 6.0, Ur Speci fic [place] 1.020, Urine Protein Negative, Urine Glucose (UA) Normal, Urine Ketones Negative, Urine Occult Blood Negative, Urine Nitrite Negative, Urine Bilirubin Negative, Urine Urobilinogen 4 H, Ur Leukocyte Esterase 25 H, Urine RBC 0 SEEN, Urine WBC 0 SEEN, Ur Squamous Epith Cells 0-5 SEEN, Urine Bacteria RARE, Urine Mucus 0 SEEN Radiology Impression Gallbladder Ultrasound 10/15/22 14:41 IMPRESSION: Enlarged fatty liver. Cholelithiasis. Electronically Signed: Reinier Gonzalez DO at 17:06 EST Reading Location ID and State: [facility] / [place] Tel [phone], Service support ,
[2022-10-15 20:00] VITALS: BP 148/74; PULSE 84; RESP 18; O2SAT 94
[2022-10-15] MEDS: Acetaminophen 325 MG Tablet 650 MG PO (21:14)
[2022-10-15 22:00] VITALS: RESP 16
[2022-10-16 00:30] VITALS: BP 136/78; PULSE 76; RESP 18; TEMP 36.6; O2SAT 98
== END 2022-10-16 00:38 | disposition short-term general hospital (02) ==
PROVIDERS: Emergency Provider Emergency Medicine; PCP Family Medicine; Visit Provider Emergency Medicine
DX: K80.01 Calculus of gallbladder with acute cholecystitis with obstruction (principal); J44.9 Chronic obstructive pulmonary disease, unspecified; E11.9 Type 2 diabetes mellitus without complications; E78.5 Hyperlipidemia, unspecified; Z79.02 Long term (current) use of antithrombotics/antiplatelets; R74.8 Abnormal levels of other serum enzymes; Z95.5 Presence of coronary angioplasty implant and graft; Z87.891 Personal history of nicotine dependence; E66.9 Obesity, unspecified; Z79.899 Other long term (current) drug therapy; I25.10 Atherosclerotic heart disease of native coronary artery without angina pectoris; Z98.84 Bariatric surgery status
CPT/HCPCS: 76705; 80053; 81001; 83690; 85025; 87811; 96365; 96366; 96374; 99284; J7030; A4216; J2405

== ENCOUNTER 2023-12-01 09:12 | Emergency (ER) | payer MEDICARE, SELFPAY ==
[2023-12-01] VITALS (8 sets, daily range): BP systolic 97–165; BP diastolic 59–112; PULSE 83–125; RESP 20–30; TEMP 35.5–36.7; O2SAT 92–98; BMI 40.0
--- NOTE | 2023-12-01 09:42 | EKG12_ITS ---
Test Reason : SOB Blood Pressure : / mmHG Vent. Rate : 098 BPM Atrial Rate : 098 BPM P-R Int : 168 ms QRS Dur : 084 ms QT Int : 340 ms P-R-T Axes : 048 033 045 degrees QTc Int : 434 ms Normal sinus rhythm Normal ECG Confirmed by Pasha Cardenas ([id number]), supervising film or videotape editor BRONSON ANGEL ([id number]) on 12/05/2023 8:48:23 AM Referred By: KENDRA Confirmed By:Pasha Cardenas
[2023-12-01 09:57] LABS: Absolute Lymphocyte Count 2.39 X10^3/uL (0.83-4.51); Absolute Neutrophil Count 6.4 X10^3/uL (2.0-7.7); Basophil# 0.16 X10^3/uL; Basophil% 1.4 % (0-1); Eosinophil# 1.25 X10^3/uL; Eosinophils% 11.1 % (0-5); Hemoglobin 12.9 g/dL (12.0-15.0); Lymphocyte # 2.39 X10^3/ul (0.83-4.51); Lymphocyte % 21.2 % (19-41); Mean Corp Hgb Conc 32.3 g/dL (32-36); Mean Corpuscular Hgb 29.9 pg (27.0-32.0); Mean Corpuscular Volume 92.8 fL (81-99); Mean Platelet Vol. 8.8 fl (6.2-12.0); Monocyte# 0.99 X10^3/uL; Monocyte% 8.8 % (0-10); NRBC Flagged by Analyzer 0 % (0-5); Neutrophil # 6.43 X10^3/uL (2.7-7.7); Platelet Count 282 K/mm3 (150-450); RBC Distribution Width CV 13.6 % (11.6-14.6); RBC Distribution Width SD 46.6 fl (35.1-43.9); Red Blood Count 4.31 M/mm3 (4.2-5.4); White Blood Count 11.3 K/mm3 (4.4-11.0)
--- NOTE | 2023-12-01 09:58 | ED.VIS.DYS ---
HPI History of Present Illness Chief Complaint: Shortness of Breath Narrative Narrative: 60-year-old female with history of COPD/asthma short of breath for about a month. States recently finished a prednisone taper yesterday. He is not feeling better. Still feels like she is wheezing. Denies fevers or chills. She is been tested for COVID and influenza she has some chest discomfort was described as burning. [facility] Medical History Acute asthma exacerbation Anxiety disorder Asthma/COPD Chills with fever Coronary artery disease Depression Diabetes mellitus Hyperlipidemia Pneumonia Productive cough Home Medications albuterol sulfate 2.5 mg/3 mL (0.083 %) solution for nebulization 2.5 mg inhalation Q4H PRN PRN Sob &/Or Wheezing 06/22/17 [History Last Taken 09/13/17 16:00] albuterol sulfate 90 mcg/actuation aerosol inhaler 1 puff inhalation Q4H PRN PRN Shortness Of Breath 06/22/17 [History Last Taken 09/13/17 16:00] alprazolam 1 mg tablet 1 mg PO QHS PRN Anxiety 06/22/17 [History Last Taken 09/01/17 22:00 1 MG] bupropion HCl 300 mg 24 hr tablet, extended release 150 mg PO BID DEPRESSION 06/22/17 [History Last Taken 09/22/18 08:00] clopidogrel 75 mg tablet 75 mg PO DAILY BLOOD THINNER 06/22/17 [History Last Taken 09/22/18 08:00 75 MG] docusate sodium 100 mg capsule 100 mg PO DAILY PRN PRN Constipation 06/22/17 [History Last Taken 09/21/18 08:00] fluticasone propionate 50 mcg/actuation nasal spray,suspension 2 spray NASAL DAILY SINUS 06/22/17 [History Last Taken 09/22/18 08:00] nitroglycerin 0.4 mg sublingual tablet 1 tab PO Q5M CHEST PAIN 06/22/17 [History Last Taken 09/22/18 18:00] nystatin 100,000 unit/gram topical powder 1 applic topical BID REDNESS 06/22/17 [History Last Taken 09/20/18 08:00] atorvastatin 40 mg tablet 40 mg PO QHS CHOLESTEROL 09/13/17 [History Last Taken 09/21/18 22:00 40 MG] melatonin 10 mg capsule 10 mg PO QHS SLEEP 09/13/17 [History Last Taken 09/21/18 22:00 10 MG] montelukast 10 mg tablet 10 mg PO QHS ALLERGY 09/13/17 [History Last Taken 09/21/18 22:00 10 MG] furosemide 20 mg tablet (Lasix) 20 mg PO BID water pill 12/27/17 [History Last Taken 09/22/18 08:00] mometasone-formoterol HFA 200 mcg-5 mcg/actuation aerosol inhaler (Dulera) 2 puff inhalation BID SOB 12/27/17 [History Last Taken Unknown] omeprazole 20 mg capsule,delayed release 40 mg PO DAILY ACID REFLUX 12/27/17 [History Last Taken 09/22/18 08:00] ramipril 10 mg capsule (Altace) 10 mg PO QHS heart health 12/27/17 [History Last Taken 09/21/18 22:00] risperidone 1 mg tablet 1 mg PO DAILY schizophrenia 09/22/18 [History Last Taken 09/22/18 08:00] risperidone 1 mg tablet 2 mg PO QHS schizophrenia 09/22/18 [History Last Taken 09/21/18 22:00] topiramate 100 mg tablet 100 mg PO QHS seizures 09/22/18 [History Last Taken 09/21/18 22:00] fluticasone propionate 220 mcg/actuation HFA aerosol inhaler 1 inh inhalation BID #12 grams 12/01/23 [Rx Last Taken Unknown] levofloxacin 500 mg tablet 500 mg PO DAILY #7 tabs 12/01/23 [Rx Last Taken Unknown] prednisone 50 mg tablet 50 mg PO DAILY #5 tabs 12/01/23 [Rx Last Taken Unknown] Allergy/AdvReac Type Severity Reaction Status Date / Time No Known Allergies Allergy Verified 10/15/22 13:27 Family History Mother Diabetes Hypertension Father Cancer Surgical History H/O section H/O colonoscopy H/O gastric bypass H/O heart artery stent Social History Smoking Status: Former smoker alcohol intake: never ROS ROS ED Constitutional Constitutional ED: Denies chills, fever(s) or sweats Eyes Eyes: Denies blurry vision or change in vision ENT ENT ED: Denies ear pain or sore throat Cardiovascular Cardiovascular: Denies chest pain, palpitations or racing heartbeat Respiratory/Chest Respiratory/Chest: Reports cough, dyspnea and dyspnea on exertion; Denies sputum Gastrointestinal Gastrointestinal: Denies abdominal pain, constipation, diarrhea, nausea or vomiting Genitourinary Genitourinary ED: Denies dysuria, hematuria or urinary frequency Musculoskeletal Musculoskeletal: Denies arthralgias, myalgias or neck pain Integumentary Denies abscess, Abrasions or rash Neurologic Neurologic: Denies headache(s), paresthesias or weakness Psychiatric Psychiatric: Denies anxiety, depression, suicidal ideation or suicidal thoughts Endocrine Endocrinology: Denies polydipsia or polyuria EXAM Physical Exam Const Vital Signs: 12/01/23 09:12 12/01/23 09:43 12/01/23 09:43 Temperature 96 F L Temperature Source Temporal Pulse Rate 125 H Respiratory Rate 30 H Respiratory Depth Normal Respiratory Pattern Normal Blood Pressure 97/59 L Blood Pressure Mean 71 Pulse Ox 95 93 Oxygen Delivery Method Room Air Room Air Room Air 12/01/23 09:48 12/01/23 10:00 12/01/23 11:28 Temperature 98.0 F Temperature Source Oral Pulse Rate 95 90 85 Respiratory Rate 20 H 24 H 24 H Respiratory Depth Respiratory Pattern Tachypnea Blood Pressure 153/112 H 165/66 H Blood Pressure Mean 125 99 Pulse Ox 93 96 Oxygen Delivery Method Room Air Room Air 12/01/23 12:17 Temperature 97.6 F L Temperature Source Oral Pulse Rate 83 Respiratory Rate 20 H Respiratory Depth Respiratory Pattern Blood Pressure 165/86 H Blood Pressure Mean 112 Pulse Ox 96 Oxygen Delivery Method Room Air Positive well nourished General Appearance ED: NAD HEENT Reports moist mucous membranes atraumatic Eyes General Eye ED: Yes pale conjunctiva Resp normal respiratory effort and clear to auscultation bilaterally Resp Narrative: Tachypnea Auscultation: wheezes Cardio Negative for regular rate or regular rhythm Neuro oriented x3 Sensorium / Orientation: alert Psych mental status grossly normal Skin no wounds and skin turgor normal MDM MDM MDM Narrative Medical decision making narrative: Patient presenting with dyspnea. She is wheezing on examination. She is given Solu-Medrol 125 mg breathing treatments. Chest x-ray was obtained to rule out pneumonia and my interpretation is no acute process. CBC to assess white blood cell count, hemoglobin, platelets. BMP to assess renal function, electrolytes, glucose. High-sensitivity troponin EKG to assess for ischemia/dysrhythmia. BNP to assess for CHF. Patient was given IV fluids and she feels much better. She still slightly wheezing on reevaluation. Chest x-ray my interpretation shows no acute process. Radiologist interprets and agrees. EKG sinus rhythm at 90 bpm without sign ischemic change or ectopy. High-sensitivity troponin is 6. BNP 7.9. D-dimer negative at 0.41. I did ambulate her in the hallway and she maintained sats of 99% and did okay from a stability standpoint. Given this I will put her on a prednisone burst and I will also put her on a Flovent inhaler as well as Levaquin as she has been symptomatic for quite some time. Patient discharged stable condition. Impression: 1. Asthma exacerbation 2. Dyspnea Lab Data Labs: Laboratory Results - last 24 hr 12/01/23 09:50 WBC 11.3 H RBC 4.31 Hgb 12.9 Hct 40.0 MCV 92.8 MCH 29.9 MCHC 32.3 RDW Std Deviation 46.6 H RDW Coeff of Jose 13.6 Plt Count 282 MPV 8.8 Immature Gran % (Auto) 0.500 Neut % (Auto) 57.0 Lymph % (Auto) 21.2 [place] % (Auto) 8.8 Eos % (Auto) 11.1 H Baso % (Auto) 1.4 H Absolute Neuts (auto) 6.4 Absolute Lymphs (auto) 2.39 Nucleated RBC % 0 D-Dimer Quant (PE/DVT) 0.41 Sodium 138 Potassium 3.7 Chloride 108 H Carbon Dioxide 23.0 Anion Gap 7 BUN 21 H Creatinine 1.34 H Estim Creat Clear Calc 50.99 Est GFR (MDRD) Af Amer 51 L Est GFR (MDRD) Non-Af 42 L BUN/Creatinine Ratio 15.7 Glucose 108 H Calcium 9.1 Troponin I High Sens 6 B-Natriuretic Peptide 7.9 Radiography Diagnostic Testing: Clinical Impression(s) from Imaging Studies Chest X-Ray 12/01/23 11:10 IMPRESSION: No acute abnormality is seen. Electronically Signed: Marcial Arceo MD at 11:57 EDT , Discharge Plan Triage Chief Complaint: Shortness of Breath ED Provider: Andrea Ferraro Dx/Rx/DC Orders Instructions: ED Asthma, Acute (Adult) Prescriptions: New levofloxacin 500 mg tablet 500 mg PO DAILY Qty: 7 0RF prednisone 50 mg tablet 50 mg PO DAILY Qty: 5 0RF fluticasone propionate 220 mcg/actuation HFA aerosol inhaler 1 inh inhalation BID Qty: 12 0RF No Action furosemide [Lasix] 20 mg tablet 20 mg PO BID ramipril [Altace] 10 mg capsule 10 mg PO QHS mometasone-formoterol [Dulera] 200-5 mcg/actuation HFA aerosol inhaler 2 puff INHALATION BID albuterol sulfate 2.5 MG/3 ML solution for nebulization 2.5 mg INHALATION Q4H PRN PRN (Reason: Sob &/Or Wheezing) nitroglycerin 0.4 MG tablet, sublingual 1 tab PO Q5M nystatin 1 APPLIC bottle 1 applic TOPICAL BID fluticasone propionate 1 SPRAY spray,suspension 2 spray NASAL DAILY alprazolam 1 MG tablet 1 mg PO QHS PRN (Reason: Anxiety) clopidogrel 75 MG tablet 75 mg PO DAILY docusate sodium 100 MG capsule 100 mg PO DAILY PRN PRN (Reason: Constipation) albuterol sulfate 1 PUFF inhaler 1 puff INHALATION Q4H PRN PRN (Reason: Shortness Of Breath) bupropion HCl 300 MG tablet extended release 24 hr 150 mg PO BID omeprazole 20 mg capsule,delayed release(DR/EC) 40 mg PO DAILY montelukast 10 MG tablet 10 mg PO QHS melatonin 10 MG capsule 10 mg PO QHS atorvastatin 40 MG tablet 40 mg PO QHS topiramate 100 MG tablet 100 mg PO QHS risperidone 1 MG tablet 1 mg PO DAILY risperidone 1 MG tablet 2 mg PO QHS Primary Care Provider: Edvin West Referrals: Edvin West MD [Primary Care Provider] - Disposition Disposition: Home, Self Care
[2023-12-01] MEDS: Ipratropium/Albuterol Sulfate 3 ML AMPUL.NEB INHALATION (09:59)
[2023-12-01] MEDS: Albuterol 2.5 MG/3 ML VIAL.NEB. INHALATION (09:59)
[2023-12-01 10:09] LABS: D-Dimer Quantitative (DVT/PE) 0.41 FEU/ug/m (0.27-0.49)
[2023-12-01] MEDS: 0.9% Normal Saline (1000mL) 1,000 ML 999 ML IV (10:09)
[2023-12-01] MEDS: MethylPREDNISolone 125 MG/2 ML Vial IV (10:09)
[2023-12-01 10:16] LABS: Anion Gap 7 (5-15); BUN 21 mg/dL (7-18); BUN/Creat Ratio 15.7 RATIO (10-20); Calcium,Total 9.1 mg/dL (8.5-10.1); Chloride 108 mmol/L (98-107); Creatinine, Serum 1.34 mg/dL (0.55-1.02); EST Glomerular Filtration Rate 42 mL/min (>60); Est Glom Filt Rate - Afr Amer 51 mL/min (>60); Estimated Creatinine Clearance 50.99 ml/min; Glucose 108 mg/dL (74-106); Potassium 3.7 mmol/L (3.5-5.1); Sodium Level 138 mmol/L (136-145); Troponin-I HS 6 pg/mL (3.0-54.0)
[2023-12-01 10:17] LABS: BNP,B-Type NATRIURETIC PEPTIDE 7.9 pg/mL (0-100)
--- NOTE | 2023-12-01 11:10 | RAD_ITS ---
STUDY: X-RAY CHEST REASON FOR EXAM: Female, 63 years old. Shortness of breath and wheezing. TECHNIQUE: Single AP portable view of the chest. COMPARISON: Comparison is made with prior study dated September 22, 2018. FINDINGS: EKG electrodes are seen. The lungs are clear and expanded. There is no demonstrated pleural abnormality. Normal size heart. Normal mediastinum and elidia. Normal visualized pulmonary arteries. There is atherosclerotic calcification of the aortic arch with tortuosity. Normal visualized thoracic spine. Normal visualized ribs, clavicles, and shoulders. There is no demonstrated abnormality of the visualized soft tissue structures of the upper abdomen. RAD/Chest 1 View (Portable) IMPRESSION: No acute abnormality is seen. Electronically Signed: Marcial Arceo MD at 11:57 EDT ,
[2023-12-01] MEDS: 0.9% Normal Saline (500mL Bag) 500 ML 999 ML IV (11:31)
[2023-12-01] MEDS: levoFLOXacin 500 MG Tablet PO (12:55)
== END 2023-12-01 13:03 | disposition home or self-care (01) ==
PROVIDERS: Emergency Provider Student in an Organized Health Care Education/Training Program; PCP Family Medicine; Visit Provider Student in an Organized Health Care Education/Training Program
DX: J45.901 Unspecified asthma with (acute) exacerbation (principal); J44.9 Chronic obstructive pulmonary disease, unspecified; E11.9 Type 2 diabetes mellitus without complications; Z87.891 Personal history of nicotine dependence; R06.00 Dyspnea, unspecified; I25.10 Atherosclerotic heart disease of native coronary artery without angina pectoris; E78.5 Hyperlipidemia, unspecified; F41.9 Anxiety disorder, unspecified; F32.A Depression, unspecified; Z79.02 Long term (current) use of antithrombotics/antiplatelets; Z79.51 Long term (current) use of inhaled steroids; Z79.899 Other long term (current) drug therapy
CPT/HCPCS: 71045; 80048; 83880; 84484; 85025; 85379; 87631; 93005; 94640; 96361; 96374; 99284; J7030; J7040; A4216